=== PATIENT | male | born 1970 | race Caucasian/White ===

== ENCOUNTER 2020-06-10 08:02 | Emergency (ER) | payer SELFPAY ==
[2020-06-10] VITALS (14 sets, daily range): BP systolic 108–150; BP diastolic 62–87; PULSE 99–125; RESP 18–24; TEMP 36.8–37.2; O2SAT 93–100; BMI 35.5
--- NOTE | 2020-06-10 08:35 | ECG_ITS ---
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 Measurements Intervals [place] Rate: 120 P: 72 WA: 116 QRS: 85 QRSD: 96 T: 78 QT: 301 QTc: 426 Interpretive Statements SINUS TACHYCARDIA WITH SHORT WA INTERVAL WITH OCCASIONAL VENTRICULAR PREMATURE COMPLEXES ABNORMAL RHYTHM ECG No previous ECG available for comparison Electronically Signed On 06-10-2020 17:51:43 LOAN ANALYST by Ariel Foley M.D. [email or web address] ([id number]
--- NOTE | 2020-06-10 08:58 | ED_ITS ---
HPI - Abdominal Pain General: Chief Complaint: Abdominal Pain Stated Complaint: BLADDER INFECT, POSS LEUKEMIA WANTS 2ND OPINION Time Seen by Provider: 06/10/20 08:25 History of Present Illness: HPI narrative: 49-year-old male presents emergency room with complaint of right flank plain burning with urination x2 days. Few weeks ago he was seen at [facility] in [facility] and diagnosed with leukemia is supposed to be getting a bone marrow done to further evaluate and confirm he has held off on that he presents here asking for a second opinion on the matter. He denies any fever sweats or chills he has had some nausea. Initially noticed anything and patient is actually rather tachycardic. MD elicited complaint: abdominal pain and flank pain Onset (ago): day(s) Pain Consistency: constant Location: R flank Quality: cramping Radiation: none Migration to: no migration Exacerbating factors: nothing Relieving factors: nothing Associated Symptoms: Reports anorexia, GI cramping, dysuria and fever(s); Denies belching, bloating, change in bowel habits, change in stool character, chills, coffee ground emesis, constipation, diarrhea, dyspepsia, excessive flatus, heartburn, hematemesis, fecal incontinence, poor appetite and syncope Review of Systems Const: Reports: fever(s); Denies: chills ENMT: Denies: throat pain, ear or mastoid pain, nasal discharge or nasal congestion Card: Denies: syncope Resp: Denies: dyspnea, productive cough or non-productive cough GI: Reports: GI cramping; Denies: hematemesis, coffee ground emesis, heartburn, diarrhea, constipation, bloating, belching, excessive flatus, fecal incontinence, change in bowel habits or change in stool character : Reports: dysuria Skin/Breast: Denies: rash or pruritus Physical Exam Const: COMMON NORMALS: no acute distress GENERAL APPEARANCE: cooperative and comfortable ORIENTATION/CONSCIOUSNESS: Yes awake, Yes oriented to person, Yes oriented to place and Yes oriented to time HENMT: COMMON NORMALS: normocephalic, atraumatic and hearing grossly normal bilaterally HEAD & SCALP: normocephalic and atraumatic Eye: COMMON NORMALS: Equal, round and reactive pupils present, EOMs intact bilaterally, conjunctivae normal and no scleral icterus CONJUNCTIVA: Yes conjunctivae normal PUPIL: Yes Equal, round and reactive pupils present Neck/C-Spine: COMMON NORMALS: full ROM, no lymphadenopathy, supple and no JVD Lymph: LYMPHATIC: no lymphadenopathy noted and no lymphedema noted Resp: COMMON NORMALS: normal respiratory effort, No retractions, No use of accessory muscles and clear to auscultation bilaterally AUSCULTATION: clear to auscultation bilaterally Cardio: COMMON NORMALS: no JVD, regular rate, regular rhythm and No murmurs p resent (Cardio) RATE: regular rate RHYTHM: regular rhythm GI: COMMON NORMALS: Soft to palpation and No hepatosplenomegaly present AUSCULTATION: Yes normoactive bowel sounds PALPATION: Yes Soft to palpation, No Tenderness to palpation present (GI), No Guarding due to palpation present (GI) and Yes No hepatosplenomegaly present Extremity: COMMON NORMALS: normal to inspection, capillary refill normal, no clubbing, cyanosis or edema, no calf tenderness and no pedal edema Neuro: SENSORIUM/ORIENTATION: Yes oriented to person, Yes oriented to place and Yes oriented to time Skin: COMMON NORMALS: no rashes or lesions noted GENERAL SKIN EXAM: no rashes or lesions noted Course Vital Signs: Vital signs: Vital Signs Temperature 98.8 F 06/10/20 13:20 Pulse Rate 102 H 06/10/20 13:30 Respiratory Rate 20 H 06/10/20 13:30 Blood Pressure 120/62 06/10/20 13:30 Pulse Oximetry 93 06/10/20 13:30 MDM - Abdominal Pain MDM Narrative: Medical decision making narrative: No urinary tract infection. Hemoglobin significantly low. Get records from [facility] he basically the same presentation there albeit with significantly lower platelet count is anemia today is a little bit worse he was transfused 1 unit there they had recommended that he have a bone marrow done to evaluate because the number of blasts he had in the bone marrow would concur with that recommendation and offered admission to get this done he does not want to because of financial reasons encouraged him to reconsider instead he insists on leaving and will schedule as an outpatient once his blood is transfused will discharge home and will make arrangements early next week for a bone marrow aspiration. Lab Data: Labs: Lab Results 06/10/20 06/10/20 06/10/20 Range/Units 08:55 08:55 08:55 WBC 5.5 (4.0-10.0) 10^3/ uL RBC 1.99 L (4.1-5.3) 10^6/u L Hgb 6.5 L* (11.7-16.6) g/dL Hct 19.4 L* (42.0-52.0) % MCV 97.5 H (80-94) fL MCH 32.7 (28.0-34.0) pg MCHC 33.5 (30.0-36.0) g/dL RDW 17.5 H (12.1-15.1) % Plt Count 121 L (130-400) 10^3/c mm MPV 12.4 H (7.4-10.4) fL Lymph % (Auto) Not Reportable [place] % (Auto) Not Reportable Lymph # (Auto) Not Reportable [place] # (Auto) Not Reportable Total Counted 100 (0-100) Atypical Lymphs % 1.0 (0-5) % Absolute Neutrophi ls 1.7 (1.4-6.5) 10^3/c mm Segmented Neutroph ils 24 % Abs Segm Neuts (Ma n) 1.3 L (1.6-7.1) 10/cmm Band Neutrophils 6.0 % Abs Band Neuts (Ma n) 0.3 (0.0-1.2) 10^3/c mm Lymphocytes (Manua l) 49 % Monocytes (Manual) 4.0 % Absolute Monocytes 0.2 (0.1-0.6) 10^3/c mm Eosinophils (Manua l) 3 % Absolute Eosinophi ls 0.1 (0.0-0.7) 10^3/c mm Basophils (Manual) 1.0 % Absolute Basophils 0.1 (0.0-0.2) 10^3/c mm Metamyelocytes 2.0 % Myelocytes 2.0 % Promyelocytes 1.0 % Nucleated RBCs 1.0 (0-1) /100WBC Blast Cells 7 H* (0-0) % Platelet Estimate Decreased (Normal) Giant Platelets 2+ H Hypochromasia Trace Poikilocytosis Trace Anisocytosis 2+ H Ovalocytes Trace PT (12.1-14.9) SECO NDS INR (0.8-1.2) APTT (23.9-36.7) SECO NDS Sodium (136-145) mmol/L Potassium (3.5-5.1) mmol/L Chloride (98-107) mmol/L Carbon Dioxide (22-29) mmol/L Anion Gap (5-19) BUN (6-20) mg/dL Creatinine (0.7-1.2) mg/dL GFR Calculation (90-130) mL/min Glucose (65-115) mg/dL Calculated Osmolal ity (285-295) mOsm/k g Lactic Acid 2.2 (0.5-2.2) mmol/L Lactic Acid (Sepsi s) (0.5-2.2) mmol/L Calcium (8.5-10.5) mg/dL Total Bilirubin (0.15-1.2) mg/dL AST (0-40) U/L ALT (0-41) U/L Alkaline Phosphata se (40-130) IU/L Troponin T Baselin e 15 (0-15) ng/L Troponin T 120 Min nilda (0-15) ng/L Delta Troponin T (0-10) ABS# Total Protein (6.6-8.7) g/dL Albumin (3.5-5.2) g/dL Globulin (1.3-4.6) g/dL Urine Color (Yellow) Urine Appearance (CLEAR) Urine pH (5-7) Ur Specific Gravit y (1.005-1.030) Urine Protein (Negative) Urine Glucose (UA) (Normal) Urine Ketones (Negative) Urine Blood (Negative) Urine Nitrate (Negative) Urine Bilirubin (Negative) Urine Urobilinogen (Negative) mg/dL Ur Leukocyte Miesha ase (Negative) Blood Type Rho(D) Type Antibody Screen Crossmatch 06/10/20 06/10/20 06/10/20 Range/Units 08:55 08:55 09:51 WBC (4.0-10.0) 10^3/ uL RBC (4.1-5.3) 10^6/u L Hgb (11.7-16.6) g/dL Hct (42.0-52.0) % MCV (80-94) fL MCH (28.0-34.0) pg MCHC (30.0-36.0) g/dL RDW (12.1-15.1) % Plt Count (130-400) 10^3/c mm MPV (7.4-10.4) fL Lymph % (Auto) [place] % (Auto) Lymph # (Auto) [place] # (Auto) Total Counted (0-100) Atypical Lymphs % (0-5) % Absolute Neutrophi ls (1.4-6.5) 10^3/c mm Segmented Neutroph ils % Abs Segm Neuts (Ma n) (1.6-7.1) 10/cmm Band Neutrophils % Abs Band Neuts (Ma n) (0.0-1.2) 10^3/c mm Lymphocytes (Manua l) % Monocytes (Manual) % Absolute Monocytes (0.1-0.6) 10^3/c mm Eosinophils (Manua l) % Absolute Eosinophi ls (0.0-0.7) 10^3/c mm Basophils (Manual) % Absolute Basophils (0.0-0.2) 10^3/c mm Metamyelocytes % Myelocytes % Promyelocytes % Nucleated RBCs (0-1) /100WBC Blast Cells (0-0) % Platelet Estimate (Normal) Giant Platelets Hypochromasia Poikilocytosis Anisocytosis Ovalocytes PT 17.00 H (12.1-14.9) SECO NDS INR 1.33 H (0.8-1.2) APTT 30.8 (23.9-36.7) SECO NDS Sodium 133 L (136-145) mmol/L Potassium 3.7 (3.5-5.1) mmol/L Chloride 95 L (98-107) mmol/L Carbon Dioxide 28 (22-29) mmol/L Anion Gap 13.7 (5-19) BUN 15 (6-20) mg/dL Creatinine 1.1 (0.7-1.2) mg/dL GFR Calculation 71.8 L (90-130) mL/min Glucose 127 H (65-115) mg/dL Calculated Osmolal ity 278 L (285-295) mOsm/k g Lactic Acid (0.5-2.2) mmol/L Lactic Acid (Sepsi s) (0.5-2.2) mmol/L Calcium 9.1 (8.5-10.5) mg/dL Total Bilirubin 0.4 (0.15-1.2) mg/dL AST 10 (0-40) U/L ALT 10 (0-41) U/L Alkaline Phosphata se 59 (40-130) IU/L Troponin T Baselin e (0-15) ng/L Troponin T 120 Min nilda (0-15) ng/L Delta Troponin T (0-10) ABS# Total Protein 7.7 (6.6-8.7) g/dL Albumin 4.1 (3.5-5.2) g/dL Globulin 3.6 (1.3-4.6) g/dL Urine Color (Yellow) Urine Appearance (CLEAR) Urine pH (5-7) Ur Specific Gravit y (1.005-1.030) Urine Protein (Negative) Urine Glucose (UA) (Normal) Urine Ketones (Negative) Urine Blood (Negative) Urine Nitrate (Negative) Urine Bilirubin (Negative) Urine Urobilinogen (Negative) mg/dL Ur Leukocyte Miesha ase (Negative) Blood Type A Positive Rho(D) Type Positive Antibody Screen Negative Crossmatch See Detail 06/10/20 06/10/20 06/10/20 Range/Units 10:21 11:00 11:00 WBC (4.0-10.0) 10^3/ uL RBC (4.1-5.3) 10^6/u L Hgb (11.7-16.6) g/dL Hct (42.0-52.0) % MCV (80-94) fL MCH (28.0-34.0) pg MCHC (30.0-36.0) g/dL RDW (12.1-15.1) % Plt Count (130-400) 10^3/c mm MPV (7.4-10.4) fL Lymph % (Auto) [place] % (Auto) Lymph # (Auto) [place] # (Auto) Total Counted (0-100) Atypical Lymphs % (0-5) % Absolute Neutrophi ls (1.4-6.5) 10^3/c mm Segmented Neutroph ils % Abs Segm Neuts (Ma n) (1.6-7.1) 10/cmm Band Neutrophils % Abs Band Neuts (Ma n) (0.0-1.2) 10^3/c mm Lymphocytes (Manua l) % Monocytes (Manual) % Absolute Monocytes (0.1-0.6) 10^3/c mm Eosinophils (Manua l) % Absolute Eosinophi ls (0.0-0.7) 10^3/c mm Basophils (Manual) % Absolute Basophils (0.0-0.2) 10^3/c mm Metamyelocytes % Myelocytes % Promyelocytes % Nucleated RBCs (0-1) /100WBC Blast Cells (0-0) % Platelet Estimate (Normal) Giant Platelets Hypochromasia Poikilocytosis Anisocytosis Ovalocytes PT (12.1-14.9) SECO NDS INR (0.8-1.2) APTT (23.9-36.7) SECO NDS Sodium (136-145) mmol/L Potassium (3.5-5.1) mmol/L Chloride (98-107) mmol/L Carbon Dioxide (22-29) mmol/L Anion Gap (5-19) BUN (6-20) mg/dL Creatinine (0.7-1.2) mg/dL GFR Calculation (90-130) mL/min Glucose (65-115) mg/dL Calculated Osmolal ity (285-295) mOsm/k g Lactic Acid (0.5-2.2) mmol/L Lactic Acid (Sepsi s) 0.9 (0.5-2.2) mmol/L Calcium (8.5-10.5) mg/dL Total Bilirubin (0.15-1.2) mg/dL AST (0-40) U/L ALT (0-41) U/L Alkaline Phosphata se (40-130) IU/L Troponin T Baselin e (0-15) ng/L Troponin T 120 Min nilda 13.17 (0-15) ng/L Delta Troponin T -1.83 L (0-10) ABS# Total Protein (6.6-8.7) g/dL Albumin (3.5-5.2) g/dL Globulin (1.3-4.6) g/dL Urine Color Yellow (Yellow) Urine Appearance Clear (CLEAR) Urine pH 5 (5-7) Ur Specific Gravit y 1.025 (1.005-1.030) Urine Protein Neg (Negative) Urine Glucose (UA) Norm (Normal) Urine Ketones Negative (Negative) Urine Blood Neg (Negative) Urine Nitrate Negative (Negative) Urine Bilirubin Neg (Negative) Urine Urobilinogen 1 H (Negative) mg/dL Ur Leukocyte Miesha ase Negative (Negative) Blood Type Rho(D) Type Antibody Screen Crossmatch Discharge Plan Discharge Patient Disposition: Home Clinical Impression: Anemia, Thrombocytopenia Condition: Stable Discharge Orders: Discharge ED (Routine); Ordered 06/10/20 Ordered By: Jesse Orlando Discharge Diet: Usual diet Activity Restrictions/Additional Instructions: This management will try to get you scheduled for a bone marrow test as soon as we are able Coding Level of Care Code ED Felt Coverer for eTrri Fwd Exam Comprehensive
[2020-06-10] MEDS: ondansetron 2 mg/ML SDV 2 mL 4 MG IVP ×2 (09:14→10:55)
[2020-06-10] MEDS: sodium chloride 0.9% 1,000 ML 999 ML IV (09:14)
[2020-06-10 09:15] LABS: Mean Corpuscular HGB Conc 33.5 g/dL (30.0-36.0); Mean Corpuscular Hemoglobin 32.7 pg (28.0-34.0); Mean Corpuscular Volume 97.5 fL (80-94); Mean Platelet Volume 12.4 fL (7.4-10.4); Platelet Count 121 10^3/cmm (130-400); Red Blood Count 1.99 10^6/uL (4.1-5.3); Red Cell Distribution Width 17.5 % (12.1-15.1); White Blood Count 5.5 10^3/uL (4.0-10.0)
[2020-06-10 09:23] LABS: Lactic Sepsis W/Reflex 2.2 mmol/L (0.5-2.2)
[2020-06-10 09:25] LABS: Troponin(5th) Baseline 15 ng/L (0-15)
[2020-06-10 09:32] LABS: Alanine Aminotransferase 10 U/L (0-41); Albumin Level 4.1 g/dL (3.5-5.2); Alkaline Phosphatase 59 IU/L (40-130); Anion Gap 13.7 (5-19); Aspartate Amino Transferase 10 U/L (0-40); Blood Urea Nitrogen 15 mg/dL (6-20); Calcium 9.1 mg/dL (8.5-10.5); Carbon Dioxide 28 mmol/L (22-29); Chloride 95 mmol/L (98-107); Globulin 3.6 g/dL (1.3-4.6); Glomerular Filtration Rate 71.8 mL/min (90-130); Glucose 127 mg/dL (65-115); Osmolality Calculated 278 mOsm/kg (285-295); Potassium 3.7 mmol/L (3.5-5.1); Sodium 133 mmol/L (136-145); Total Bilirubin 0.4 mg/dL (0.15-1.2); Total Protein 7.7 g/dL (6.6-8.7)
[2020-06-10 09:36] LABS: Slide Review Slide Review Perform
[2020-06-10 09:39] LABS: Hematocrit 19.4 % (42.0-52.0); Hemoglobin 6.5 g/dL (11.7-16.6)
[2020-06-10 09:45] LABS: Absolute Eosinophils 0.1 10^3/cmm (0.0-0.7); Absolute Segmented Neutrophil 1.3 10/cmm (1.6-7.1); Band Neutrophils Absolute 0.3 10^3/cmm (0.0-1.2); Basophils Absolute 0.1 10^3/cmm (0.0-0.2); Eosinophils 3 %; Lymphocytes 49 %; Monocytes Absolute 0.2 10^3/cmm (0.1-0.6); Segmented Neutrophils 24 %; Total Cells Counted 100 (0-100)
[2020-06-10 09:47] LABS: Blastocytes 7 % (0-0)
[2020-06-10 09:48] LABS: Anisocytosis 2+; Giant Platelets 2+; Hypochromasia Trace; Ovalocytes Trace; Poikilocytosis Trace
[2020-06-10 09:49] LABS: Absolute Neutrophil 1.7 10^3/cmm (1.4-6.5); Platelet Estimate Decreased (Normal)
[2020-06-10 10:29] LABS: Add Urine Microscopic? NO
[2020-06-10 10:34] LABS: Bilirubin Urine Neg (Negative); Blood Urine Neg (Negative); Glucose Urine UA Norm (Normal); Ketones Urine Negative (Negative); Leukocyte Esterase Urine Negative (Negative); Nitrate Urine Negative (Negative); Protein Urine Neg (Negative); Specific Gravity, Urine 1.025 (1.005-1.030); Urine Appearance Clear (CLEAR); Urine Color Yellow (Yellow); Urobilinogen Urine 1 mg/dL (Negative); pH Urine 5 (5-7)
--- NOTE | 2020-06-10 10:35 | ECG_ITS ---
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 Measurements Intervals [place] Rate: 106 P: 70 PA: 156 QRS: 81 QRSD: 93 T: 73 QT: 325 QTc: 431 Interpretive Statements SINUS TACHYCARDIA Compared to ECG 06/10/2020 09:06:05 Ventricular premature complex(es) no longer present Short PA interval no longer present Electronically Signed On 06-10-2020 17:59:59 FAMILY PRACTICE DOCTOR by Ariel Foley M.D. [id number]
[2020-06-10 10:48] LABS: Reflex Lactate Order REFLEX LACTIC ORDERD
[2020-06-10] MEDS: morphine 4 mg/mL SDV 1 mL IVP ×2 (10:55→12:45)
[2020-06-10 11:25] LABS: Lactic Acid level (Lactate) 0.9 mmol/L (0.5-2.2)
[2020-06-10 11:26] LABS: Troponin 5 2HR 13.17 ng/L (0-15)
[2020-06-10 11:28] LABS: Troponin 5 2HR Delta -1.83 ABS# (0-10)
[2020-06-10] MEDS: sodium chloride 0.9% 250 ML 100 ML IV (12:23)
[2020-06-10] MEDS: orphenadrine 30 mg/mL Inj 2 mL 60 MG IVP (12:45)
[2020-06-10] MEDS: ketorolac 30 mg/mL INJ IVP (12:45)
[2020-06-10 13:06] LABS: INR 1.33 (0.8-1.2)
[2020-06-10 13:07] LABS: Partial Thromboplastin Time 30.8 SECONDS (23.9-36.7)
--- NOTE | 2020-06-12 15:45 | DCPLANNER ---
commercial loan manager had message to schedule an outpatient bone marrow study for patient. commercial loan manager called Lilo Antonio, call center coordinator for [facility]. commercial loan manager gave clinic patients information. commercial loan manager was told that patients information will be printed and that she will call family to inform patient of what patient needs to do to get things started. commercial loan manager gave Antonio, patients name and phone number.
--- NOTE | 2020-06-27 08:01 | DCPLANNER ---
Patient had a follow up appointment scheduled for 06.15.20 with the [facility], patient saw Dr. Bowman, patient is going to follow up in [place].
== END 2020-06-10 14:44 | disposition home or self-care (01) ==
PROVIDERS: Emergency Provider Family Medicine
DX: D64.9 Anemia, unspecified (principal); D69.6 Thrombocytopenia, unspecified
CPT/HCPCS: 12345; 36430; 80053; 81003; 83605; 84484; 85007; 85025; 85610; 85730; 86850; 86900; 86920; 87040; 93005; 96361; 96374; 96375; 96376; 99283; 99284; J1885; J2270; J2360; J2405; J7030; J7050; P9016

== ENCOUNTER 2020-06-15 10:34 | Outpatient (CLI) | payer SELFPAY ==
[2020-06-15 11:11] LABS: Basophils % 0.4 %; Eosinophils # 0.2 10^3/uL (0.0-0.8); Eosinophils % 3.6 %; Hematocrit 21.7 % (42.0-52.0); Hemoglobin 7.1 g/dL (11.7-16.6); Lymphocytes # 3.5 10^3/uL (0.8-4.8); Lymphocytes % 73.7 %; Mean Corpuscular HGB Conc 32.7 g/dL (30.0-36.0); Mean Corpuscular Hemoglobin 31.8 pg (28.0-34.0); Mean Corpuscular Volume 97.3 fL (80-94); Monocytes # 0.4 10^3/uL (0.2-0.9); Monocytes % 8.3 %; Neutrophils % 10.8 %; Nucleated Red Blood Cells % 0.4 %; Platelet Count 123 10^3/cmm (130-400); Red Blood Count 2.23 10^6/uL (4.1-5.3); Red Cell Distribution Width 16.2 % (12.1-15.1); White Blood Count 4.7 10^3/uL (4.0-10.0)
[2020-06-15 12:06] LABS: Slide Review Slide Review Perform
--- NOTE | 2020-06-15 16:06 | ONC CON_ITS ---
Dr. Bowman New Patient Note Patient: Sukhdeep Hyde Unit #: [id number]: 1970 Dicatated By: Alyssa Bowman M.D.Date of Visit: Jun 15, 2020 Onc MED New Patient/Consult Referring Physician: No 'Referrals from' exist for this patient. History of Present Illness: Mr. Sukhdeep Hyde, is a 49-year-old gentleman with known significant past medical history except progressive generalized weakness and fatigue and episode of near syncopal attack for which he went to [facility] ER in [facility] on May 23, 2020, as per patient prior to that he was feeling lightheaded and dizzy along with the palpitation and he went to see his PMD where labs showed including CBC showed hemoglobin 6.7 g and platelet count 49,000 patient was advised to go to the emergency room in [facility] where repeat CBC on May 23, 2020 showed hemoglobin 6.5 g platelet count 66,000 and peripheral blood smear shows blasts 6% and his folate level was 2.84, patient was tachycardic so EKG showed tachycardia with possible flutter, chest x-ray shows no acute process and patient was given 1 unit of packed RBC and was admitted to hospital for further work-up and hematology consult was called in and the recommendations were due to severe anemia and thrombocytopenia with about 7-8% blast cells on peripheral blood smear peripheral blood flow cytometry was ordered which was done on May 24, 2020 showed increased myeloid lineage blasts, 7.9% with aberrant CD7, mild eosinophilia. Granulocyte population in various stages of maturation with aberrant 56 expression is identified and differential included AML, MDS or a myeloproliferative neoplasm, bone marrow evaluation was recommended but patient got upset with physician there and decided to take second opinion and did not make follow-up appointment with hematology clinic. Patient denies any recent infection patient denies any melena or hematochezia or hemoptysis or hematemesis patient denies any jaundice patient denies any hematuria patient denies any abdominal pain patient denies any peripheral lymphadenopathy patient denies any night sweats, weight loss or recurrent fevers patient denies any abdominal fullness patient denies any weight loss. But progressive weakness, shortness of breath and dyspnea on exertion and palpitation And on June 10, 2020 he went to [facility] with right flank pain and burning micturition of couple of days duration and his labs shows white blood count 5.5, hemoglobin 6.5 hematocrit 19.4 platelets 121,007% promyelocytes ANC was 24% patient was given packed RBC and oral antibiotics and was referred to hematology clinic. Patient denies any specific complaints except appears anxious regarding new diagnosis of acute leukemia, said he was told to stay in the hospital for 14 days in [place] and he may need treatments for 4 months. Past Medical History: There is no documented medical history. Past Surgical History: There is no documented surgical history. Medications: This patient reports not taking external medications. Allergies: No Known Allergies. Social History: Mr. Hyde is . He is a daily smoker who has smoked for 33 years. He drinks occasionally. Family History: There is no documented family history. Review Of Symptoms: Constitutional - Appetite is diminished and weight is decreasing. No fever, night sweats, or hot flashes. Energy level is diminished, ENMT - No sinus congestion/drainage. No mouth sores. No sore throat or difficulty swallowing, Hematologic/Lymphatic - Positive for easy bruising and bleeding. Pt reports hx of b lood transfusions, Respiratory - Positive for shortness of breath and cough. No pleuritic pain or hemoptysis, Cardiovascular - No angina pain. No palpitations, Gastrointestinal - No nausea or vomiting. No heartburn or acid reflux. No diarrhea or constipation. No blood in the stool or black stools, Genitourinary (M) - No dysuria or hematuria. No urinary frequency. No urgency or incontinence, Musculoskeletal - Positive for joint pain, Neurologic - No headache or dizziness. No numbness or tingling. Pt reports hx of stroke, Psychiatric - No anxiety or depression. No insomnia. Vital Signs: Performed on Jun 15, 2020 11:37: 2, 34.39 (HIGH), 2.31 sq.m, 71 in, 96 %, 123 /min (HIGH), 18 /min, 145/85 mm(hg) (HIGH), 97.7 F (LOW), and 246.6 lbs (HIGH). Performance Status: 1 - No physically strenuous activity, but ambulatory and able to carry out light or sedentary work (e.g. office work, light house work). (ECOG) Physical Examination: ENMT - No mouth sores no thrush no jaundice, Respiratory - Lungs are clear to auscultation, Cardiovascular - Regular rate and rhythm of heart, Abdomen - Soft, bowel sounds present, Extremities - No visible edema. Lab/Imaging: Most recent lab results are not available for this patient. Impression: Severe normocytic, normochromic anemia, mild thrombocytopenia and with abnormal peripheral blood smear with myeloblasts/pro myeloblasts, etiology AML versus MDS with excess blast versus other myeloproliferative disorder Status post packed RBCs twice since May 23, 2020 Plan: Discussed with patient regarding his labs from today which showed white blood count 4.7 hemoglobin 7.1 hematocrit 21.7 platelets 123,000 ANC 500 And peripheral blood flow cytometry done on May 24, 2020 at [facility] which showed peripheral blood specimen with increased myeloid lineage blasts, 7.9% aberrant CD7, mild eosinophilia. Granulocyte population very stages of maturation with aberrant CD56 expression is identified Clinically, patient is in mild to moderate distress due to severe anemia as well as anxiety, patient was reassured and was advised that his peripheral blood smear as well as whole blood flow cytometry results shows abnormality causing concern regarding possibility of acute myeloid leukemia but other possibility including MDS with excess blast is also a possibility and strongly recommend bone marrow evaluation to confirm the diagnosis for appropriate treatment, patient lives in [facility] and had a follow-up appointment in hematology clinic at [facility], patient was advised to contact hematology clinic and follow the recommendations regarding further diagnostic work-up and treatment on an urgent basis. Patient and his expressed full understanding and agreed to go for bone marrow evaluation and require treatment., Patient and his said they will call and schedule appointment with travertine installer at [facility]. And they were advised if in case they need any assistance, will be more than happy to assist.Patient was also advised in case he started feeling dizzy or lightheaded or any fever chills, he need to go to hospital immediately for evaluation. Signed By: Alyssa Bowman M.D. <<Signature on File>>
== END 2020-06-15 10:35 | disposition home or self-care (01) ==
LOC: ONCMED 10:41
PROVIDERS: Visit Provider Internal Medicine Hematology & Oncology
DX: D64.9 Anemia, unspecified (principal); D69.6 Thrombocytopenia, unspecified; F41.9 Anxiety disorder, unspecified
CPT/HCPCS: 36415; 85025; 99205

== ENCOUNTER 2020-10-08 11:22 | Emergency (ER) | payer MEDICAID, SELFPAY ==
[2020-10-08 11:38] VITALS: BP 162/105; PULSE 118; RESP 16; TEMP 36.8; O2SAT 97; BMI 30.7
--- NOTE | 2020-10-08 12:07 | ED_ITS ---
HPI - Dizziness General: Chief Complaint: Dizziness Stated Complaint: DIZZINESS Time Seen by Provider: 10/08/20 12:04 History of Present Illness: HPI Narrative: 50-year-old patient comes in stating he feels dizzy. He got up to use the bathroom at 3-4 AM and felt wobbly. 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 He states that when he feels like this he is usually anemic. He denies any pain or burning with urination. No diarrhea or constipation. No fever or chills. No shortness of breath or cough. He denies any ear pain, runny nose or sore throat. He denies any abdominal pain. No flank pain. MD elicited complaint: dizziness (She states he feels wobbly.) Pertinent past history: anemia (History of anemia) and other (AML) Onset (ago): hour(s) (This started 3-4 AM.) Timing: sudden onset Severity: similar to previous episodes (He states he has felt this way when he has been anemic.) Description: off-balance History of similar symptoms: Yes Exacerbating factors: movement/ambulation and change in body position Relieving factors: remaining still and rest Associated symptoms: Denies chest pain, chills, cough, diaphoresis, ear discharg e, ear pressure, fevers/chills, headache(s), nausea, palpitations, short of breath, vomiting or weakness Review of Systems General: Reports: 10 or more systems reviewed and unremarkable except in HPI and below Narrative: 50-year-old male with AML and history of anemia comes in feeling dizzy. Patient appears to be in no acute distress. Const: Denies: fever(s), chills, body aches, fatigue or diaphoresis Eyes: Denies: blurry vision ENMT: Denies: throat pain, ear or mastoid pain, ear discharge or nasal discharge Card: Reports: lightheadedness (Current chief complaint of dizziness); Denies: chest pain, palpitations or irregular heart rhythm Resp: Denies: dyspnea or productive cough GI: Denies: nausea or vomiting Neuro: Denies: headache(s) Physical Exam Narrative: EXAM NARRATIVE: 50-year-old male in no acute distress. Comes in with dizziness. He states this is how he feels when his blood level is low. 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 Const: COMMON NORMALS: no acute distress, average body habitus, patient oriented x3, no limitations, healthy appearing, alert and well nourished GENERAL APPEARANCE: cooperative, comfortable, well kempt and well developed ORIENTATION/CONSCIOUSNESS: Yes awake, Yes oriented to person, Yes oriented to place and Yes oriented to time HENMT: COMMON NORMALS: normocephalic and atraumatic HEAD & SCALP: normocephalic and atraumatic Eye: COMMON NORMALS: Equal, round and reactive pupils present, EOMs intact bilaterally, conjunctivae normal, no scleral icterus and no papilledema GENERAL EYE: appearance normal, both eyes and all related structures CONJUNCTIVA: Yes conjunctivae normal PUPIL: Yes Equal, round and reactive pupils present DIRECT OPHTHALMOSCOPY: Yes no papilledema Neck/C-Spine: COMMON NORMALS: full ROM, supple, no meningeal signs and no JVD GENERAL: Yes normal visual inspection and Yes trachea midline Resp: COMMON NORMALS: normal respiratory effort, No retractions, No use of accessory muscles and clear to auscultation bilaterally EFFORT & INSPECTION: Yes able to speak in complete sentences, Yes symmetric chest movement and No respiratory distress AUSCULTATION: clear to auscultation bilaterally, no crackles, no rales, no rhonchi and no wheezes Cardio: COMMON NORMALS: no JVD, regular rate, regular rhythm and No murmurs present (Cardio) RATE: regular rate RHYTHM: regular rhythm GI: COMMON NORMALS: Soft to palpation and non-tender PALPATION: Yes Soft to palpation : COMMON NORMALS: Yes no CVA tenderness BLADDER/KIDNEY EXAM: Yes no CVA tenderness Back/Pelvis: COMMON NORMALS: no CVA tenderness Extremity: COMMON NORMALS: normal to inspection, full ROM and no calf tenderness Neuro: COMMON NORMALS: patient oriented x3, CN's II-XII intact bilaterally, moves all extremities, no focal motor deficits, deep tendon reflexes 2+ bilaterally and gait normal SENSORIUM/ORIENTATION: Yes alert, Yes oriented to person, Yes oriented to place and Yes oriented to time MENINGEAL SIGNS: Yes no meningeal signs Psych: COMMON NORMALS: mental status grossly normal, Normal thought process present, cooperative, normal affect and speech normal APPEARANCE: Yes grossly normal and Yes well kempt ATTITUDE: Yes calm and Yes engaged ACTI VITY/MOTOR BEHAVIOR: Yes appropriate eye contact SPEECH: Yes normal speech THOUGHT PROCESS: Normal thought process present Course Vital Signs: Vital signs: Vital Signs Temperature 98.3 F 10/08/20 11:38 Pulse Rate 108 H 10/08/20 12:31 Respiratory Rate 16 10/08/20 11:38 Blood Pressure 163/101 10/08/20 12:31 Pulse Oximetry 97 10/08/20 11:38 MDM - Dizziness Lab Data: Labs: Lab Results 10/08/20 10/08/20 Range/Units 12:47 12:47 WBC 8.3 (4.0-10.0) 10^3/ uL RBC 4.07 L (4.1-5.3) 10^6/u L Hgb 13.7 (11.7-16.6) g/dL Hct 41.5 L (42.0-52.0) % MCV 102.0 H (80-94) fL MCH 33.7 (28.0-34.0) pg MCHC 33.0 (30.0-36.0) g/dL RDW 17.5 H (12.1-15.1) % Plt Count 235 (130-400) 10^3/c mm MPV 10.1 (7.4-10.4) fL Neut % (Auto) 53.3 % Lymph % (Auto) 27.0 % Cochran % (Auto) 13.0 % Eos % (Auto) 6.0 % Baso % (Auto) 0.5 % Neut # (Auto) 4.43 (1.8-7.7) 10^3/u L Lymph # (Auto) 2.3 (0.8-4.8) 10^3/u L Cochran # (Auto) 1.1 H (0.2-0.9) 10^3/u L Eos # (Auto) 0.5 (0.0-0.8) 10^3/u L Baso # (Auto) 0.0 (0.0-0.1) 10^3/u L Nucleated RBC % (a uto) 0 % Nucleated RBCs # 0.0 /100WBC Sodium 139 (136-145) mmol/L Potassium 4.5 (3.5-5.1) mmol/L Chloride 104 (98-107) mmol/L Carbon Dioxide 25 (22-29) mmol/L Anion Gap 14.5 (5-19) BUN 11 (6-20) mg/dL Creatinine 0.8 (0.7-1.2) mg/dL GFR Calculation 103.2 (90-130) mL/min Glucose 97 (65-115) mg/dL Calculated Osmolal ity 287 (285-295) mOsm/k g Calcium 9.4 (8.5-10.5) mg/dL Total Bilirubin 0.2 (0.15-1.2) mg/dL AST 26 (0-40) U/L ALT 20 (0-41) U/L Alkaline Phosphata se 85 (40-130) IU/L Total Protein 7.1 (6.6-8.7) g/dL Albumin 4.1 (3.5-5.2) g/dL Globulin 3.0 (1.3-4.6) g/dL Discharge Plan Discharge Patient Disposition: Home Clinical Impression: Dizziness, Orthostatic hypotension, History of anemia Condition: Stable Discharge Orders: Discharge ED (Routine); Ordered 10/08/20 Ordered By: Luis Pascal Discharge Diet: Advance as tolerated Discharge Activity: Resume usual activity Patient Instructions: Opioid Safety Activity Restrictions/Additional Instructions: Increase noncaffeine/nonalcoholic fluids. Please wear teds/support hose. Follow-up with your primary care physician and/or oncologist. Coding Level of Care Code ED Chain Pegger for Derikg Fwd Exam Comprehensive
[2020-10-08 12:31] VITALS: BP 133/105; BP 163/101; BP 164/106; PULSE 108; PULSE 111
[2020-10-08 12:58] LABS: Basophils % 0.5 %; Eosinophils # 0.5 10^3/uL (0.0-0.8); Hematocrit 41.5 % (42.0-52.0); Hemoglobin 13.7 g/dL (11.7-16.6); Lymphocytes # 2.3 10^3/uL (0.8-4.8); Mean Corpuscular Hemoglobin 33.7 pg (28.0-34.0); Mean Platelet Volume 10.1 fL (7.4-10.4); Monocytes # 1.1 10^3/uL (0.2-0.9); Neutrophils # 4.43 10^3/uL (1.8-7.7); Neutrophils % 53.3 %; Nucleated Red Blood Cells % 0 %; Platelet Count 235 10^3/cmm (130-400); Red Blood Count 4.07 10^6/uL (4.1-5.3); Red Cell Distribution Width 17.5 % (12.1-15.1); White Blood Count 8.3 10^3/uL (4.0-10.0)
[2020-10-08] MEDS: sodium chloride 0.9% 1,000 ML 999 ML IV (13:15)
[2020-10-08 13:30] LABS: Albumin Level 4.1 g/dL (3.5-5.2); Alkaline Phosphatase 85 IU/L (40-130); Anion Gap 14.5 (5-19); Blood Urea Nitrogen 11 mg/dL (6-20); Calcium 9.4 mg/dL (8.5-10.5); Carbon Dioxide 25 mmol/L (22-29); Chloride 104 mmol/L (98-107); Glomerular Filtration Rate 103.2 mL/min (90-130); Glucose 97 mg/dL (65-115); Osmolality Calculated 287 mOsm/kg (285-295); Potassium 4.5 mmol/L (3.5-5.1); Sodium 139 mmol/L (136-145); Total Bilirubin 0.2 mg/dL (0.15-1.2); Total Protein 7.1 g/dL (6.6-8.7)
[2020-10-08 13:31] LABS: Alanine Aminotransferase 20 U/L (0-41); Aspartate Amino Transferase 26 U/L (0-40)
[2020-10-08 14:52] VITALS: BP 152/98; PULSE 95; RESP 16; O2SAT 96
== END 2020-10-08 14:54 | disposition home or self-care (01) ==
PROVIDERS: Emergency Provider Emergency Medicine
DX: R42 Dizziness and giddiness (principal); I95.1 Orthostatic hypotension; Z85.6 Personal history of leukemia
CPT/HCPCS: 80053; 85025; 96360; 99283; J7030

== ENCOUNTER 2021-01-06 04:50 | Observation (INO) | payer MEDICAID, SELFPAY ==
[2021-01-06] VITALS (20 sets, daily range): BP systolic 94–125; BP diastolic 50–80; PULSE 85–138; RESP 16–29; TEMP 36.6–37.1; O2SAT 93–100; BMI 30.7
--- NOTE | 2021-01-06 05:11 | XRR_ITS ---
PROCEDURE INFORMATION: Exam: XR Chest Exam date and time: 01/06/2021 5:11 AM Age: 50 years old Clinical indication: Shortness of breath; Patient HX: SOB. History of myeloid lukemia. TECHNIQUE: Imaging protocol: XR of the chest. Views: 1 view. Total images: 1 COMPARISON: No relevant prior studies available. FINDINGS: Lungs: Unremarkable. No consolidation. Pleural spaces: Unremarkable. No pleural effusion. No pneumothorax. Heart/Mediastinum: Unremarkable. No cardiomegaly. Bones/joints: Unremarkable. XR/XR chest 1V portable [id number] IMPRESSION: No acute findings.
--- NOTE | 2021-01-06 05:13 | ECG_ITS ---
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
[2021-01-06] MEDS: sodium chloride 0.9% 1,000 ML 999 ML IV (05:32)
--- NOTE | 2021-01-06 05:36 | PC.NURSE ---
patient refused covid swab
[2021-01-06 06:08] LABS: Hematocrit 25.6 % (42.0-52.0); Hemoglobin 8.9 g/dL (11.7-16.6); Lymphocytes % 58.8 %; Mean Corpuscular HGB Conc 34.8 g/dL (30.0-36.0); Mean Corpuscular Volume 92.1 fL (80-94); Monocytes # 0.2 10^3/uL (0.2-0.9); Monocytes % 12.1 %; Neutrophils % 27.9 %; Nucleated Red Blood Cells % 0 %; Red Blood Count 2.78 10^6/uL (4.1-5.3); Red Cell Distribution Width 11.7 % (12.1-15.1); White Blood Count 1.7 10^3/uL (4.0-10.0)
[2021-01-06 06:32] LABS: Lactate (Lactic Acid level) 0.9 mmol/L (0.5-2.2)
[2021-01-06 06:34] LABS: Troponin(5th) Baseline 18 ng/L (0-15)
[2021-01-06 06:35] LABS: Alanine Aminotransferase 9 U/L (0-41); Albumin Level 3.6 g/dL (3.5-5.2); Alkaline Phosphatase 67 IU/L (40-130); Anion Gap 14.5 (5-19); Aspartate Amino Transferase 12 U/L (0-40); Blood Urea Nitrogen 20 mg/dL (6-20); C Reactive Protein 96.7 mg/L (0.0-4.9); Calcium 8.2 mg/dL (8.5-10.5); Carbon Dioxide 25 mmol/L (22-29); Chloride 95 mmol/L (98-107); Creatine Phosphokinase 57 U/L (39-308); Globulin 2.2 g/dL (1.3-4.6); Glomerular Filtration Rate 64.6 mL/min (90-130); Glucose 113 mg/dL (65-115); Osmolality Calculated 273 mOsm/kg (285-295); Potassium 4.5 mmol/L (3.5-5.1); Sodium 130 mmol/L (136-145); Total Bilirubin 0.7 mg/dL (0.15-1.2); Total Protein 5.8 g/dL (6.6-8.7)
[2021-01-06 06:36] LABS: D Dimer 6.43 ug/mIFEU (0-0.59)
[2021-01-06] MEDS: morphine 4 mg/mL SDV 1 mL IVP ×2 (06:39→10:04)
[2021-01-06] MEDS: ondansetron 2 mg/ML SDV 2 mL 4 MG IVP (06:40)
[2021-01-06 06:41] LABS: Procalcitonin 0.86 ng/mL (0-0.5)
--- NOTE | 2021-01-06 06:49 | CTR_ITS ---
PROCEDURE INFORMATION: Exam: CTA Chest With Contrast Exam date and time: 01/06/2021 6:49 AM Age: 50 years old Clinical indication: Abdominal tenderness; Abdominal pain; Generalized; Dyspnea; On breathing; Additional info: Chest and abdominal pain, hypoxia, SOB TECHNIQUE: Imaging protocol: Computed tomographic angiography of the chest with contrast. 3D rendering (Not supervised by radiologist): MIP and/or 3D reconstructed images were created by the technologist. Total images: 1163 Radiation optimization: All CT scans at this facility use at least one of these dose optimization techniques: automated exposure control; mA and/or kV adjustment per patient size (includes targeted exams where dose is matched to clinical indication); or iterative reconstruction. Contrast material: OMNIPAQUE 350; Contrast volume: 95 ml; Contrast route: INTRAVENOUS (IV); COMPARISON: CR (CHEST, ) 01/06/2021 5:25 AM RADIATION DOSE METRICS: Total DLP (mGy-cm): 1567.23 FINDINGS: Pulmonary arteries: Pulmonary artery evaluation of good technical quality with no pulmonary artery embolism identified. Aorta: Unremarkable. No aortic aneurysm. No aortic dissection. Lungs: Unremarkable. No consolidation. No masses. Pleural spaces: Unremarkable. No pneumothorax. No pleural effusion. Heart: Unremarkable. No cardiomegaly. No pericardial effusion. Lymph nodes: Unremarkable. No enlarged lymph nodes. Bones/joints: Unremarkable. No acute fracture. Soft tissues: Unremarkable. IMPRESSION: 1. No pulmonary artery embolism identified. 2. No acute process identified. PROCEDURE INFORMATION: Exam: CT Abdomen And Pelvis With Contrast Exam date and time: 01/06/2021 6:49 AM Age: 50 years old Clinical indication: Abdominal tenderness; Abdominal pain; Generalized; Dyspnea; On breathing; Additional info: Chest and abdominal pain, hypoxia, SOB TECHNIQUE: Imaging protocol: Computed tomography of the abdomen and pelvis with contrast. Radiation optimization: All CT scans at this facility use at least one of these dose optimization techniques: automated exposure control; mA and/or kV adjustment per patient size (includes targeted exams where dose is matched to clinical indication); or iterative reconstruction. Contrast material: OMNIPAQUE 350; Contrast volume: 95 ml; Contrast route: INTRAVENOUS (IV); COMPARISON: CR (CHEST, ) 01/06/2021 5:25 AM RADIATION DOSE METRICS: Total DLP (mGy-cm): 1567.23 FINDINGS: Lungs: Benign granulomatous disease of the lung is noted. Liver: Normal. No mass. Gallbladder and bile ducts: Normal. No calcified stones. No ductal dilation. Pancreas: Normal. No ductal dilation. Spleen: Normal. No splenomegaly. Adrenal glands: Normal. No mass. Kidneys and ureters: Normal. No hydronephrosis. Stomach and bowel: Unremarkable. No obstruction. No mucosal thickening. Appendix: No evidence of appendicitis. Intraperitoneal space: Unremarkable. No free air. No significant fluid collection. Vasculature: Unremarkable. No abdominal aortic aneurysm. Lymph nodes: Unremarkable. No enlarged lymph nodes. Urinary bladder: Unremarkable as visualized. Reproductive: Unremarkable as visualized. Bones/joints: Mild scattered degenerative changes of the spine. Soft tissues: Unremarkable. CT/CT angio chest w abd pel w con IMPRESSION: No acute findings. Radiation Dose CTDIVOL = (mGy): DLP = 1567.23~1567.23 (mGy-cm)
[2021-01-06 06:51] LABS: PCO2 VBG 43.6 mmHg (41-51); PO2 VBG 36.6 mmHg (25-40); Venous Blood Gas Hematocrit 7.4 % (42-52)
[2021-01-06 06:52] LABS: Base Excess VBG 1.9 mmol/L (-3.0-3.0); Blood Gas Allen Test pos; HCO3 VBG 26.9 mmol/L (24-28); Oxygen Device nc
--- NOTE | 2021-01-06 06:59 | PC.NURSE ---
patient stated felt better, denied any pain at this time. no acute distress noted
--- NOTE | 2021-01-06 07:13 | ECG_ITS ---
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1970 Requested By: Santos Avitia Order Number: [id number] Donaldo MD: CALLIE LIVINGSTON Measurements Intervals [place] Rate: 90 P: 73 WI: 152 QRS: 90 QRSD: 102 T: 79 QT: 358 QTc: 439 Interpretive Statements SINUS RHYTHM WITH MARKED RHYTHM IRREGULARITY, POSSIBLE NON-CONDUCTED PAC, SA BLOCK, AV BLOCK, OR SINUS PAUSE ABNORMAL RHYTHM ECG Compared to ECG 01/06/2021 05:16:02 Sinus tachycardia no longer present Electronically Signed On 01-06-2021 20:30:47 CDT by CALLIE LIVINGSTON [id number]
[2021-01-06] MEDS: iohexol 350 mg/mL 100 mL Btl IV (07:36)
[2021-01-06 07:39] LABS: Add Urine Microscopic? YES; Bilirubin Urine Neg (Negative); Blood Urine Neg (Negative); Glucose Urine UA Norm (Normal); Ketones Urine Negative (Negative); Leukocyte Esterase Urine Negative (Negative); Nitrate Urine Negative (Negative); Protein Urine Trace (Negative); Specific Gravity, Urine 1.015 (1.005-1.030); Urine Appearance Clear (CLEAR); Urine Color Yellow (Yellow); Urobilinogen Urine Norm (Negative); pH Urine 5 (5-7)
[2021-01-06 07:41] LABS: Add Urine Culture? No; Bacteria Urine TRACE /hpf; Mucus Urine 2+ /hpf
[2021-01-06 08:14] LABS: Neutrophils # 0.46 10^3/uL (1.8-7.7); Platelet Count 7 10^3/cmm (130-400)
[2021-01-06 08:15] LABS: Slide Review Slide Review Perform
[2021-01-06 08:39] LABS: Troponin 5 2HR 17.82 ng/L (0-15)
[2021-01-06 08:40] LABS: Troponin 5 2HR Delta -0.18 ABS# (0-10)
--- NOTE | 2021-01-06 09:00 | ED_ITS ---
Documented by User: Santos Ferrara DO 01/06/21 20:05 HPI - Abdominal Pain General: Chief Complaint: ER Hold Stated Complaint: aml flare up Time Seen by Provider: 01/06/21 05:04 History of Present Illness: HPI narrative: 50-year-old male with a history of AML. He woke with back and abdominal pain. He is sick at his stomach as well. He denies any cough or fever. He states that he has not had chemotherapy in 3 months or more. MD elicited complaint: abdominal pain Pertinent past history: other Onset (ago): hour(s) Pain Consistency: constant Location: Diffuse Severity: severe Quality: cramping, stabbing and aching Radiation: back Migration to: no migration Associated Symptoms: Reports nausea; Denies change in stool character, constipation, diarrhea, fever(s), hematochezia, hematemesis and vomiting Review of Systems Const: Denies: fever(s) or body aches ENMT: Denies: throat pain Card: Denies: chest pain or palpitations GI: Reports: nausea; Denies: vomiting, hematemesis, diarrhea, constipation, change in stool character or hematochezia PFSH ED PFSH: Medical History (Updated 01/07/21 @ 18:01 by Jesse Orlando DO) AML (acute myeloblastic leukemia) (~05/2020) Has received some chemotherapy and had multiple bone marrow biopsies. Not wanting further treatment or hospitalization at this time. History of anemia Orthostatic hypotension Surgical History (Updated 01/06/21 @ 15:32 by Tiffanie Penny MD) History of bone marrow biopsy multiple Family History (Updated 01/06/21 @ 15:33 by Tiffanie Penny MD) Denies family history of Cancer Social History (Updated 01/06/21 @ 15:33 by Tiffanie Penny MD) Smoking and tobacco status: current every day smoker Alcohol intake: never Substance/Drug Use: never Physical Exam Const: GENERAL APPEARANCE: cooperative and ill appearing ORIENTATION/CONSCIOUSNESS: Yes awake, Yes oriented to person, Yes oriented to place and Yes oriented to time HENMT: COMMON NORMALS: normocephalic HEAD & SCALP: normocephalic FACE & SINUS: normal facial exam Chest: COMMONS NORMALS: normal inspection of the chest Resp: EFFORT & INSPECTION: Yes tachypneic AUSCULTATION: wheezes (R>L) Cardio: COMMON NORMALS: regular rhythm RATE: tachycardic RHYTHM: regular rhythm GI: COMMON NORMALS: Normal to inspection, nondistended, normoactive bowel sounds present and Soft to palpation PALPATION: Yes Soft to palpation and Yes Tenderness to palpation present (GI) (mild diffuse) Neuro: SENSORIUM/ORIENTATION: Yes oriented to person, Yes oriented to place and Yes oriented to time Course Consultations: Consultation #1: Dr. Tuttle (for Dr. Cuenca, oncology at ) Vital Signs: Vital signs: Vital Signs Temperature 97.8 F 01/06/21 17:33 Pulse Rate 91 01/06/21 17:33 Respiratory Rate 19 H 01/06/21 17:33 Blood Pressure 112/62 01/06/21 17:33 Pulse Oximetry 96 01/06/21 17:33 MDM - Abdominal Pain MDM Narrative: Medical decision making narrative: Laboratory shows severe thrombocytopenia with a platelet count of 7. White blood cell count is 1.7 he was significantly tachycardic on arrival, in the 130s to 140s. His heart rates currently 85. Blood pressure 98/51 after fluid bolus. CTA of the chest with abdomen pelvis was ordered. Shows no acute findings either in the chest or abdomen/pelvis. He will still require platelet transfusion. He also has mild neutropenia with a neutrophil count of 460. The patient refused his Covid swab. Spoke with oncology at the [facility], where the patient has care. He has evidently refused all oncologic treatments at this point. Recommendations are to transfuse platelets in this patient, and if he is clinically stable otherwise, allow him to go home. Observation orders were written for this patient to come into the hospital, be further evaluated, and receive his platelet transfusion. He received his platelets, 2 units in the emergency department. He still did not have a bed available upstairs. This frustrated the patient, so he asked to be discharged home. Lab Data: Labs: Lab Results 01/06/21 01/06/21 01/06/21 Range/Units 05:32 05:32 05:32 WBC 1.7 L (4.0-10.0) 10^3/ uL RBC 2.78 L (4.1-5.3) 10^6/u L Hgb 8.9 L (11.7-16.6) g/dL Hct 25.6 L (42.0-52.0) % MCV 92.1 (80-94) fL MCH 32.0 (28.0-34.0) pg MCHC 34.8 (30.0-36.0) g/dL RDW 11.7 L (12.1-15.1) % Plt Count 7 L* (130-400) 10^3/c mm MPV 11.0 H (7.4-10.4) fL Neut % (Auto) 27.9 % Lymph % (Auto) 58.8 % Mccracken % (Auto) 12.1 % Eos % (Auto) 0.0 % Baso % (Auto) 0.0 % Neut # (Auto) 0.46 L* (1.8-7.7) 10^3/u L Lymph # (Auto) 1.0 (0.8-4.8) 10^3/u L Mccracken # (Auto) 0.2 (0.2-0.9) 10^3/u L Eos # (Auto) 0.0 (0.0-0.8) 10^3/u L Baso # (Auto) 0.0 (0.0-0.1) 10^3/u L Nucleated RBC % (a uto) 0 % Nucleated RBCs # 0.0 /100WBC D-Dimer 6.43 H (0-0.59) ug/mIFE U Specimen Type Sample Site O2 Sat Pulse Oxime try ABG pH ABG pCO2 ABG pO2 ABG HCO3 ABG Base Excess Roland Test VBG pH (7.32-7.42) VBG pCO2 (41-51) mmHg VBG pO2 (25-40) mmHg VBG HCO3 (24-28) mmol/L VBG Base Excess (-3.0-3.0) mmol/ L VBG Hematocrit (42-52) % Hematocrit Respiration Rate O2 Delivery Device O2 Liters/Min SIMV Vent Mode Mechanical Rate Spontaneous Rate FiO2 Tidal Volume PEEP Pressure Support Pressure Control CPAP Mode BiPAP Specimen Drawn By Smoking Pipe Liner ID Crit Value Read Ba ck Blood Gas Notified Time Sodium 130 L (136-145) mmol/L Potassium 4.5 (3.5-5.1) mmol/L Chloride 95 L (98-107) mmol/L Carbon Dioxide 25 (22-29) mmol/L Anion Gap 14.5 (5-19) BUN 20 (6-20) mg/dL Creatinine 1.2 (0.7-1.2) mg/dL GFR Calculation 64.6 L (90-130) mL/min Glucose 113 (65-115) mg/dL Calculated Osmolal ity 273 L (285-295) mOsm/k g Lactate (0.5-2.2) mmol/L Calcium 8.2 L (8.5-10.5) mg/dL Total Bilirubin 0.7 (0.15-1.2) mg/dL AST 12 (0-40) U/L ALT 9 (0-41) U/L Alkaline Phosphata se 67 (40-130) IU/L Creatine Kinase 57 (39-308) U/L Troponin T Baselin e (0-15) ng/L Troponin T 120 Min [place] (0-15) ng/L Delta Troponin T (0-10) ABS# C-Reactive Protein 96.7 H (0.0-4.9) mg/L Total Protein 5.8 L (6.6-8.7) g/dL Albumin 3.6 (3.5-5.2) g/dL Globulin 2.2 (1.3-4.6) g/dL Procalcitonin 0.86 H (0-0.5) ng/mL Urine Color (Yellow) Urine Appearance (CLEAR) Urine pH (5-7) Ur Specific Gravit y (1.005-1.030) Urine Protein (Negative) Urine Glucose (UA) (Normal) Urine Ketones (Negative) Urine Blood (Negative) Urine Nitrate (Negative) Urine Bilirubin (Negative) Urine Urobilinogen (Negative) mg/dL Ur Leukocyte Miesha ase (Negative) Urine RBC (0-2) /hpf Urine WBC (0-5) /hpf Ur Squamous Epith Cells (0-5) /hpf Amorphous Sediment Urine Bacteria (NONE) /hpf Urine Mucus /hpf Blood Type Rho(D) Type 01/06/21 01/06/21 01/06/21 Range/Units 05:32 05:32 06:20 WBC (4.0-10.0) 10^3/ uL RBC (4.1-5.3) 10^6/u L Hgb (11.7-16.6) g/dL Hct (42.0-52.0) % MCV (80-94) fL MCH (28.0-34.0) pg MCHC (30.0-36.0) g/dL RDW (12.1-15.1) % Plt Count (130-400) 10^3/c mm MPV (7.4-10.4) fL Neut % (Auto) % Lymph % (Auto) % Mccracken % (Auto) % Eos % (Auto) % Baso % (Auto) % Neut # (Auto) (1.8-7.7) 10^3/u L Lymph # (Auto) (0.8-4.8) 10^3/u L Mccracken # (Auto) (0.2-0.9) 10^3/u L Eos # (Auto) (0.0-0.8) 10^3/u L Baso # (Auto) (0.0-0.1) 10^3/u L Nucleated RBC % (a uto) % Nucleated RBCs # /100WBC D-Dimer (0-0.59) ug/mIFE U Specimen Type Cancelled Sample Site Cancelled O2 Sat Pulse Oxime try Cancelled ABG pH Cancelled ABG pCO2 Cancelled ABG pO2 Cancelled ABG HCO3 Cancelled ABG Base Excess Cancelled Roland Test Cancelled VBG pH (7.32-7.42) VBG pCO2 (41-51) mmHg VBG pO2 (25-40) mmHg VBG HCO3 (24-28) mmol/L VBG Base Excess (-3.0-3.0) mmol/ L VBG Hematocrit (42-52) % Hematocrit Cancelled Respiration Rate Cancelled O2 Delivery Device Cancelled O2 Liters/Min Cancelled SIMV Cancelled Vent Mode Cancelled Mechanical Rate Cancelled Spontaneous Rate Cancelled FiO2 Cancelled Tidal Volume Cancelled PEEP Cancelled Pressure Support Cancelled Pressure Control Cancelled CPAP Cancelled Mode BiPAP Cancelled Specimen Drawn By Cancelled Smoking Pipe Liner ID Cancelled Crit Value Read Ba ck Cancelled Blood Gas Notified Time Cancelled Sodium (136-145) mmol/L Potassium (3.5-5.1) mmol/L Chloride (98-107) mmol/L Carbon Dioxide (22-29) mmol/L Anion Gap (5-19) BUN (6-20) mg/dL Creatinine (0.7-1.2) mg/dL GFR Calculation (90-130) mL/min Glucose (65-115) mg/dL Calculated Osmolal ity (285-295) mOsm/k g Lactate 0.9 (0.5-2.2) mmol/L Calcium (8.5-10.5) mg/dL Total Bilirubin (0.15-1.2) mg/dL AST (0-40) U/L ALT (0-41) U/L Alkaline Phosphata se (40-130) IU/L Creatine Kinase (39-308) U/L Troponin T Baselin e 18 H (0-15) ng/L Troponin T 120 Min [place] (0-15) ng/L Delta Troponin T (0-10) ABS# C-Reactive Protein (0.0-4.9) mg/L Total Protein (6.6-8.7) g/dL Albumin (3.5-5.2) g/dL Globulin (1.3-4.6) g/dL Procalcitonin (0-0.5) ng/mL Urine Color (Yellow) Urine Appearance (CLEAR) Urine pH (5-7) Ur Specific Gravit y (1.005-1.030) Urine Protein (Negative) Urine Glucose (UA) (Normal) Urine Ketones (Negative) Urine Blood (Negative) Urine Nitrate (Negative) Urine Bilirubin (Negative) Urine Urobilinogen (Negative) mg/dL Ur Leukocyte Miesha ase (Negative) Urine RBC (0-2) /hpf Urine WBC (0-5) /hpf Ur Squamous Epith Cells (0-5) /hpf Amorphous Sediment Urine Bacteria (NONE) /hpf Urine Mucus /hpf Blood Type Rho(D) Type 01/06/21 01/06/21 01/06/21 Range/Units 06:34 06:39 07:57 WBC (4.0-10.0) 10^3/ uL RBC (4.1-5.3) 10^6/u L Hgb (11.7-16.6) g/dL Hct (42.0-52.0) % MCV (80-94) fL MCH (28.0-34.0) pg MCHC (30.0-36.0) g/dL RDW (12.1-15.1) % Plt Count (130-400) 10^3/c mm MPV (7.4-10.4) fL Neut % (Auto) % Lymph % (Auto) % Mccracken % (Auto) % Eos % (Auto) % Baso % (Auto) % Neut # (Auto) (1.8-7.7) 10^3/u L Lymph # (Auto) (0.8-4.8) 10^3/u L Mccracken # (Auto) (0.2-0.9) 10^3/u L Eos # (Auto) (0.0-0.8) 10^3/u L Baso # (Auto) (0.0-0.1) 10^3/u L Nucleated RBC % (a uto) % Nucleated RBCs # /100WBC D-Dimer (0-0.59) ug/mIFE U Specimen Type Not Reportable Sample Site Not Reportable O2 Sat Pulse Oxime try ABG pH ABG pCO2 ABG pO2 ABG HCO3 ABG Base Excess Roland Test pos VBG pH 7.40 (7.32-7.42) VBG pCO2 43.6 (41-51) mmHg VBG pO2 36.6 (25-40) mmHg VBG HCO3 26.9 (24-28) mmol/L VBG Base Excess 1.9 (-3.0-3.0) mmol/ L VBG Hematocrit 7.4 L (42-52) % Hematocrit Respiration Rate O2 Delivery Device nc O2 Liters/Min SIMV Vent Mode Mechanical Rate Spontaneous Rate FiO2 28.0 Tidal Volume PEEP Pressure Support Pressure Control CPAP Mode BiPAP Specimen Drawn By Smoking Pipe Liner ID monro Crit Value Read Ba ck Blood Gas Notified Time Sodium (136-145) mmol/L Potassium (3.5-5.1) mmol/L Chloride (98-107) mmol/L Carbon Dioxide (22-29) mmol/L Anion Gap (5-19) BUN (6-20) mg/dL Creatinine (0.7-1.2) mg/dL GFR Calculation (90-130) mL/min Glucose (65-115) mg/dL Calculated Osmolal ity (285-295) mOsm/k g Lactate (0.5-2.2) mmol/L Calcium (8.5-10.5) mg/dL Total Bilirubin (0.15-1.2) mg/dL AST (0-40) U/L ALT (0-41) U/L Alkaline Phosphata se (40-130) IU/L Creatine Kinase (39-308) U/L Troponin T Baselin e (0-15) ng/L Troponin T 120 Min [place] 17.82 H (0-15) ng/L Delta Troponin T -0.18 L (0-10) ABS# C-Reactive Protein (0.0-4.9) mg/L Total Protein (6.6-8.7) g/dL Albumin (3.5-5.2) g/dL Globulin (1.3-4.6) g/dL Procalcitonin (0-0.5) ng/mL Urine Color Yellow (Yellow) Urine Appearance Clear (CLEAR) Urine pH 5 (5-7) Ur Specific Gravit y 1.015 (1.005-1.030) Urine Protein Trace (Negative) Urine Glucose (UA) Norm (Normal) Urine Ketones Negative (Negative) Urine Blood Neg (Negative) Urine Nitrate Negative (Negative) Urine Bilirubin Neg (Negative) Urine Urobilinogen Norm (Negative) mg/dL Ur Leukocyte Miesha ase Negative (Negative) Urine RBC None (0-2) /hpf Urine WBC None (0-5) /hpf Ur Squamous Epith Cells None (0-5) /hpf Amorphous Sediment Not Reportable Urine Bacteria Trace (NONE) /hpf Urine Mucus 2+ /hpf Blood Type Rho(D) Type 01/06/21 Range/Units 09:50 WBC (4.0-10.0) 10^3/ uL RBC (4.1-5.3) 10^6/u L Hgb (11.7-16.6) g/dL Hct (42.0-52.0) % MCV (80-94) fL MCH (28.0-34.0) pg MCHC (30.0-36.0) g/dL RDW (12.1-15.1) % Plt Count (130-400) 10^3/c mm MPV (7.4-10.4) fL Neut % (Auto) % Lymph % (Auto) % Mccracken % (Auto) % Eos % (Auto) % Baso % (Auto) % Neut # (Auto) (1.8-7.7) 10^3/u L Lymph # (Auto) (0.8-4.8) 10^3/u L Mccracken # (Auto) (0.2-0.9) 10^3/u L Eos # (Auto) (0.0-0.8) 10^3/u L Baso # (Auto) (0.0-0.1) 10^3/u L Nucleated RBC % (a uto) % Nucleated RBCs # /100WBC D-Dimer (0-0.59) ug/mIFE U Specimen Type Sample Site O2 Sat Pulse Oxime try ABG pH ABG pCO2 ABG pO2 ABG HCO3 ABG Base Excess Roland Test VBG pH (7.32-7.42) VBG pCO2 (41-51) mmHg VBG pO2 (25-40) mmHg VBG HCO3 (24-28) mmol/L VBG Base Excess (-3.0-3.0) mmol/ L VBG Hematocrit (42-52) % Hematocrit Respiration Rate O2 Delivery Device O2 Liters/Min SIMV Vent Mode Mechanical Rate Spontaneous Rate FiO2 Tidal Volume PEEP Pressure Support Pressure Control CPAP Mode BiPAP Specimen Drawn By Smoking Pipe Liner ID Crit Value Read Ba ck Blood Gas Notified Time Sodium (136-145) mmol/L Potassium (3.5-5.1) mmol/L Chloride (98-107) mmol/L Carbon Dioxide (22-29) mmol/L Anion Gap (5-19) BUN (6-20) mg/dL Creatinine (0.7-1.2) mg/dL GFR Calculation (90-130) mL/min Glucose (65-115) mg/dL Calculated Osmolal ity (285-295) mOsm/k g Lactate (0.5-2.2) mmol/L Calcium (8.5-10.5) mg/dL Total Bilirubin (0.15-1.2) mg/dL AST (0-40) U/L ALT (0-41) U/L Alkaline Phosphata se (40-130) IU/L Creatine Kinase (39-308) U/L Troponin T Baselin e (0-15) ng/L Troponin T 120 Min [place] (0-15) ng/L Delta Troponin T (0-10) ABS# C-Reactive Protein (0.0-4.9) mg/L Total Protein (6.6-8.7) g/dL Albumin (3.5-5.2) g/dL Globulin (1.3-4.6) g/dL Procalcitonin (0-0.5) ng/mL Urine Color (Yellow) Urine Appearance (CLEAR) Urine pH (5-7) Ur Specific Gravit y (1.005-1.030) Urine Protein (Negative) Urine Glucose (UA) (Normal) Urine Ketones (Negative) Urine Blood (Negative) Urine Nitrate (Negative) Urine Bilirubin (Negative) Urine Urobilinogen (Negative) mg/dL Ur Leukocyte Miesha ase (Negative) Urine RBC (0-2) /hpf Urine WBC (0-5) /hpf Ur Squamous Epith Cells (0-5) /hpf Amorphous Sediment Urine Bacteria (NONE) /hpf Urine Mucus /hpf Blood Type A Positive Rho(D) Type Positive / 4+ Discharge Plan Discharge Patient Disposition: Home Clinical Impression: AML (acute myeloblastic leukemia), Anemia, Thrombocytopenia, Leukopenia Condition: Stable Discharge Orders: Discharge Order (Routine); Ordered 01/06/21 Ordered By: Tiffanie Penny Discharge Diet: Advance as tolerated Discharge Activity: Resume usual activity Coding Level of Care Code 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 Documented by User: Jesse Orlando DO 01/07/21 18:01 HPI - Abdominal Pain General: Chief Complaint: ER Hold Stated Complaint: aml flare up Time Seen by Provider: 01/06/21 05:04 [facility] ED PFS: Medical History (Updated 01/07/21 @ 18:01 by Jesse Orlando DO) AML (acute myeloblastic leukemia) (~05/2020) Has received some chemotherapy and had multiple bone marrow biopsies. Not wanting further treatment or hospitalization at this time. History of anemia Orthostatic hypotension Surgical History (Updated 01/06/21 @ 15:32 by Tiffanie Penny MD) History of bone marrow biopsy multiple Family History (Updated 01/06/21 @ 15:33 by Tiffanie Penny MD) Denies family history of Cancer Social History (Updated 01/06/21 @ 15:33 by Tiffanie Penny MD) Smoking and tobacco status: current every day smoker Alcohol intake: never Substance/Drug Use: never Course Vital Signs: Vital signs: Vital Signs Temperature 97.8 F 01/06/21 17:33 Pulse Rate 91 01/06/21 17:33 Respiratory Rate 19 H 01/06/21 17:33 Blood Pressure 112/62 01/06/21 17:33 Pulse Oximetry 96 01/06/21 17:33 MDM - Abdominal Pain MDM Narrative: Medical decision making narrative: Care assumed a change of shift. Patient did ultimately decide to stay we work with hospitalist Dr. Penny and managed him down here in the. urgency room. Once platelets are available they are transfused here and eventually patient was dismissed from the emergency room by Dr. Penny. H Lab Data: Labs: Lab Results 01/06/21 01/06/21 01/06/21 Range/Units 05:32 05:32 05:32 WBC 1.7 L (4.0-10.0) 10^3/ uL RBC 2.78 L (4.1-5.3) 10^6/u L Hgb 8.9 L (11.7-16.6) g/dL Hct 25.6 L (42.0-52.0) % MCV 92.1 (80-94) fL MCH 32.0 (28.0-34.0) pg MCHC 34.8 (30.0-36.0) g/dL RDW 11.7 L (12.1-15.1) % Plt Count 7 L* (130-400) 10^3/c mm MPV 11.0 H (7.4-10.4) fL Neut % (Auto) 27.9 % Lymph % (Auto) 58.8 % Mccracken % (Auto) 12.1 % Eos % (Auto) 0.0 % Baso % (Auto) 0.0 % Neut # (Auto) 0.46 L* (1.8-7.7) 10^3/u L Lymph # (Auto) 1.0 (0.8-4.8) 10^3/u L Mccracken # (Auto) 0.2 (0.2-0.9) 10^3/u L Eos # (Auto) 0.0 (0.0-0.8) 10^3/u L Baso # (Auto) 0.0 (0.0-0.1) 10^3/u L Nucleated RBC % (a uto) 0 % Nucleated RBCs # 0.0 /100WBC D-Dimer 6.43 H (0-0.59) ug/mIFE U Specimen Type Sample Site O2 Sat Pulse Oxime try ABG pH ABG pCO2 ABG pO2 ABG HCO3 ABG Base Excess Roland Test VBG pH (7.32-7.42) VBG pCO2 (41-51) mmHg VBG pO2 (25-40) mmHg VBG HCO3 (24-28) mmol/L VBG Base Excess (-3.0-3.0) mmol/ L VBG Hematocrit (42-52) % Hematocrit Respiration Rate O2 Delivery Device O2 Liters/Min SIMV Vent Mode Mechanical Rate Spontaneous Rate FiO2 Tidal Volume PEEP Pressure Support Pressure Control CPAP Mode BiPAP Specimen Drawn By Smoking Pipe Liner ID Crit Value Read Ba ck Blood Gas Notified Time Sodium 130 L (136-145) mmol/L Potassium 4.5 (3.5-5.1) mmol/L Chloride 95 L (98-107) mmol/L Carbon Dioxide 25 (22-29) mmol/L Anion Gap 14.5 (5-19) BUN 20 (6-20) mg/dL Creatinine 1.2 (0.7-1.2) mg/dL GFR Calculation 64.6 L (90-130) mL/min Glucose 113 (65-115) mg/dL Calculated Osmolal ity 273 L (285-295) mOsm/k g Lactate (0.5-2.2) mmol/L Calcium 8.2 L (8.5-10.5) mg/dL Total Bilirubin 0.7 (0.15-1.2) mg/dL AST 12 (0-40) U/L ALT 9 (0-41) U/L Alkaline Phosphata se 67 (40-130) IU/L Creatine Kinase 57 (39-308) U/L Troponin T Baselin e (0-15) ng/L Troponin T 120 Min [place] (0-15) ng/L Delta Troponin T (0-10) ABS# C-Reactive Protein 96.7 H (0.0-4.9) mg/L Total Protein 5.8 L (6.6-8.7) g/dL Albumin 3.6 (3.5-5.2) g/dL Globulin 2.2 (1.3-4.6) g/dL Procalcitonin 0.86 H (0-0.5) ng/mL Urine Color (Yellow) Urine Appearance (CLEAR) Urine pH (5-7) Ur Specific Gravit y (1.005-1.030) Urine Protein (Negative) Urine Glucose (UA) (Normal) Urine Ketones (Negative) Urine Blood (Negative) Urine Nitrate (Negative) Urine Bilirubin (Negative) Urine Urobilinogen (Negative) mg/dL Ur Leukocyte Miesha ase (Negative) Urine RBC (0-2) /hpf Urine WBC (0-5) /hpf Ur Squamous Epith Cells (0-5) /hpf Amorphous Sediment Urine Bacteria (NONE) /hpf Urine Mucus /hpf Blood Type Rho(D) Type 01/06/21 01/06/21 01/06/21 Range/Units 05:32 05:32 06:20 WBC (4.0-10.0) 10^3/ uL RBC (4.1-5.3) 10^6/u L Hgb (11.7-16.6) g/dL Hct (42.0-52.0) % MCV (80-94) fL MCH (28.0-34.0) pg MCHC (30.0-36.0) g/dL RDW (12.1-15.1) % Plt Count (130-400) 10^3/c mm MPV (7.4-10.4) fL Neut % (Auto) % Lymph % (Auto) % Mccracken % (Auto) % Eos % (Auto) % Baso % (Auto) % Neut # (Auto) (1.8-7.7) 10^3/u L Lymph # (Auto) (0.8-4.8) 10^3/u L Mccracken # (Auto) (0.2-0.9) 10^3/u L Eos # (Auto) (0.0-0.8) 10^3/u L Baso # (Auto) (0.0-0.1) 10^3/u L Nucleated RBC % (a uto) % Nucleated RBCs # /100WBC D-Dimer (0-0.59) ug/mIFE U Specimen Type Cancelled Sample Site Cancelled O2 Sat Pulse Oxime try Cancelled ABG pH Cancelled ABG pCO2 Cancelled ABG pO2 Cancelled ABG HCO3 Cancelled ABG Base Excess Cancelled Roland Test Cancelled VBG pH (7.32-7.42) VBG pCO2 (41-51) mmHg VBG pO2 (25-40) mmHg VBG HCO3 (24-28) mmol/L VBG Base Excess (-3.0-3.0) mmol/ L VBG Hematocrit (42-52) % Hematocrit Cancelled Respiration Rate Cancelled O2 Delivery Device Cancelled O2 Liters/Min Cancelled SIMV Cancelled Vent Mode Cancelled Mechanical Rate Cancelled Spontaneous Rate Cancelled FiO2 Cancelled Tidal Volume Cancelled PEEP Cancelled Pressure Support Cancelled Pressure Control Cancelled CPAP Cancelled Mode BiPAP Cancelled Specimen Drawn By Cancelled Smoking Pipe Liner ID Cancelled Crit Value Read Ba ck Cancelled Blood Gas Notified Time Cancelled Sodium (136-145) mmol/L Potassium (3.5-5.1) mmol/L Chloride (98-107) mmol/L Carbon Dioxide (22-29) mmol/L Anion Gap (5-19) BUN (6-20) mg/dL Creatinine (0.7-1.2) mg/dL GFR Calculation (90-130) mL/min Glucose (65-115) mg/dL Calculated Osmolal ity (285-295) mOsm/k g Lactate 0.9 (0.5-2.2) mmol/L Calcium (8.5-10.5) mg/dL Total Bilirubin (0.15-1.2) mg/dL AST (0-40) U/L ALT (0-41) U/L Alkaline Phosphata se (40-130) IU/L Creatine Kinase (39-308) U/L Troponin T Baselin e 18 H (0-15) ng/L Troponin T 120 Min [place] (0-15) ng/L Delta Troponin T (0-10) ABS# C-Reactive Protein (0.0-4.9) mg/L Total Protein (6.6-8.7) g/dL Albumin (3.5-5.2) g/dL Globulin (1.3-4.6) g/dL Procalcitonin (0-0.5) ng/mL Urine Color (Yellow) Urine Appearance (CLEAR) Urine pH (5-7) Ur Specific Gravit y (1.005-1.030) Urine Protein (Negative) Urine Glucose (UA) (Normal) Urine Ketones (Negative) Urine Blood (Negative) Urine Nitrate (Negative) Urine Bilirubin (Negative) Urine Urobilinogen (Negative) mg/dL Ur Leukocyte Miesha ase (Negative) Urine RBC (0-2) /hpf Urine WBC (0-5) /hpf Ur Squamous Epith Cells (0-5) /hpf Amorphous Sediment Urine Bacteria (NONE) /hpf Urine Mucus /hpf Blood Type Rho(D) Type 01/06/21 01/06/21 01/06/21 Range/Units 06:34 06:39 07:57 WBC (4.0-10.0) 10^3/ uL RBC (4.1-5.3) 10^6/u L Hgb (11.7-16.6) g/dL Hct (42.0-52.0) % MCV (80-94) fL MCH (28.0-34.0) pg MCHC (30.0-36.0) g/dL RDW (12.1-15.1) % Plt Count (130-400) 10^3/c mm MPV (7.4-10.4) fL Neut % (Auto) % Lymph % (Auto) % Mccracken % (Auto) % Eos % (Auto) % Baso % (Auto) % Neut # (Auto) (1.8-7.7) 10^3/u L Lymph # (Auto) (0.8-4.8) 10^3/u L Mccracken # (Auto) (0.2-0.9) 10^3/u L Eos # (Auto) (0.0-0.8) 10^3/u L Baso # (Auto) (0.0-0.1) 10^3/u L Nucleated RBC % (a uto) % Nucleated RBCs # /100WBC D-Dimer (0-0.59) ug/mIFE U Specimen Type Not Reportable Sample Site Not Reportable O2 Sat Pulse Oxime try ABG pH ABG pCO2 ABG pO2 ABG HCO3 ABG Base Excess Roland Test pos VBG pH 7.40 (7.32-7.42) VBG pCO2 43.6 (41-51) mmHg VBG pO2 36.6 (25-40) mmHg VBG HCO3 26.9 (24-28) mmol/L VBG Base Excess 1.9 (-3.0-3.0) mmol/ L VBG Hematocrit 7.4 L (42-52) % Hematocrit Respiration Rate O2 Delivery Device nc O2 Liters/Min SIMV Vent Mode Mechanical Rate Spontaneous Rate FiO2 28.0 Tidal Volume PEEP Pressure Support Pressure Control CPAP Mode BiPAP Specimen Drawn By Smoking Pipe Liner TERRENCE Roach Value Read Ba ck Blood Gas Notified Time Sodium (136-145) mmol/L Potassium (3.5-5.1) mmol/L Chloride (98-107) mmol/L Carbon Dioxide (22-29) mmol/L Anion Gap (5-19) BUN (6-20) mg/dL Creatinine (0.7-1.2) mg/dL GFR Calculation (90-130) mL/min Glucose (65-115) mg/dL Calculated Osmolal ity (285-295) mOsm/k g Lactate (0.5-2.2) mmol/L Calcium (8.5-10.5) mg/dL Total Bilirubin (0.15-1.2) mg/dL AST (0-40) U/L ALT (0-41) U/L Alkaline Phosphata se (40-130) IU/L Creatine Kinase (39-308) U/L Troponin T Baselin e (0-15) ng/L Troponin T 120 Min [employer] [place] [place] 17.82 H (0-15) ng/L Delta Troponin T -0.18 L (0-10) ABS# C-Reactive Protein (0.0-4.9) mg/L Total Protein (6.6-8.7) g/dL Albumin (3.5-5.2) g/dL Globulin (1.3-4.6) g/dL Procalcitonin (0-0.5) ng/mL Urine Color Yellow (Yellow) Urine Appearance Clear (CLEAR) Urine pH 5 (5-7) Ur Specific Gravit y 1.015 (1.005-1.030) Urine Protein Trace (Negative) Urine Glucose (UA) Norm (Normal) Urine Ketones Negative (Negative) Urine Blood Neg (Negative) Urine Nitrate Negative (Negative) Urine Bilirubin Neg (Negative) Urine Urobilinogen Norm (Negative) mg/dL Ur Leukocyte Miesha ase Negative (Negative) Urine RBC None (0-2) /hpf Urine WBC None (0-5) /hpf Ur Squamous Epith Cells None (0-5) /hpf Amorphous Sediment Not Reportable Urine Bacteria Trace (NONE) /hpf Urine Mucus 2+ /hpf Blood Type Rho(D) Type 01/06/21 Range/Units 09:50 WBC (4.0-10.0) 10^3/ uL RBC (4.1-5.3) 10^6/u L Hgb (11.7-16.6) g/dL Hct (42.0-52.0) % MCV (80-94) fL MCH (28.0-34.0) pg MCHC (30.0-36.0) g/dL RDW (12.1-15.1) % Plt Count (130-400) 10^3/c mm MPV (7.4-10.4) fL Neut % (Auto) % Lymph % (Auto) % Mccracken % (Auto) % Eos % (Auto) % Baso % (Auto) % Neut # (Auto) (1.8-7.7) 10^3/u L Lymph # (Auto) (0.8-4.8) 10^3/u L Mccracken # (Auto) (0.2-0.9) 10^3/u L Eos # (Auto) (0.0-0.8) 10^3/u L Baso # (Auto) (0.0-0.1) 10^3/u L Nucleated RBC % (a uto) % Nucleated RBCs # /100WBC D-Dimer (0-0.59) ug/mIFE U Specimen Type Sample Site O2 Sat Pulse Oxime try ABG pH ABG pCO2 ABG pO2 ABG HCO3 ABG Base Excess Roland Test VBG pH (7.32-7.42) VBG pCO2 (41-51) mmHg VBG pO2 (25-40) mmHg VBG HCO3 (24-28) mmol/L VBG Base Excess (-3.0-3.0) mmol/ L VBG Hematocrit (42-52) % Hematocrit Respiration Rate O2 Delivery Device O2 Liters/Min SIMV Vent Mode Mechanical Rate Spontaneous Rate FiO2 Tidal Volume PEEP Pressure Support Pressure Control CPAP Mode BiPAP Specimen Drawn By Smoking Pipe Liner ID Crit Value Read Ba ck Blood Gas Notified Time Sodium (136-145) mmol/L Potassium (3.5-5.1) mmol/L Chloride (98-107) mmol/L Carbon Dioxide (22-29) mmol/L Anion Gap (5-19) BUN (6-20) mg/dL Creatinine (0.7-1.2) mg/dL GFR Calculation (90-130) mL/min Glucose (65-115) mg/dL Calculated Osmolal ity (285-295) mOsm/k g Lactate (0.5-2.2) mmol/L Calcium (8.5-10.5) mg/dL Total Bilirubin (0.15-1.2) mg/dL AST (0-40) U/L ALT (0-41) U/L Alkaline Phosphata se (40-130) IU/L Creatine Kinase (39-308) U/L Troponin T Baselin e (0-15) ng/L Troponin T 120 Min [employer] [place] [place] (0-15) ng/L Delta Troponin T (0-10) ABS# C-Reactive Protein (0.0-4.9) mg/L Total Protein (6.6-8.7) g/dL Albumin (3.5-5.2) g/dL Globulin (1.3-4.6) g/dL Procalcitonin (0-0.5) ng/mL Urine Color (Yellow) Urine Appearance (CLEAR) Urine pH (5-7) Ur Specific Gravit y (1.005-1.030) Urine Protein (Negative) Urine Glucose (UA) (Normal) Urine Ketones (Negative) Urine Blood (Negative) Urine Nitrate (Negative) Urine Bilirubin (Negative) Urine Urobilinogen (Negative) mg/dL Ur Leukocyte Miesha ase (Negative) Urine RBC (0-2) /hpf Urine WBC (0-5) /hpf Ur Squamous Epith Cells (0-5) /hpf Amorphous Sediment Urine Bacteria (NONE) /hpf Urine Mucus /hpf Blood Type A Positive Rho(D) Type Positive / 4+ Discharge Plan Discharge Patient Disposition: Home Clinical Impression: AML (acute myeloblastic leukemia), Anemia, Thrombocytopenia, Leukopenia Condition: Stable Discharge Orders: Discharge Order (Routine); Ordered 01/06/21 Ordered By: Tiffanie Penny Discharge Diet: Advance as tolerated Discharge Activity: Resume usual activity Coding Level of Care Code 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
--- NOTE | 2021-01-06 11:13 | ECG_ITS ---
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 Measurements Intervals [place] Rate: 87 P: 75 NE: 152 QRS: 87 QRSD: 105 T: 79 QT: 368 QTc: 444 Interpretive Statements SINUS RHYTHM Compared to ECG 01/06/2021 07:33:03 No significant changes Electronically Signed On 01-11-2021 12:42:46 CDT by Mariya Maher M.D. [email or web address] [email or web address] [email or web address] [id number]
[2021-01-06 12:08] LABS: Troponin 5 6HR 15.13 ng/L (0-15)
[2021-01-06 12:35] LABS: Troponin 5 6HR Delta -2.87 ng/L (0-12)
--- NOTE | 2021-01-06 14:49 | P.SS_ITS ---
Short Stay Summary Providers Date of Admit/Discharge: 01/06/21 Attending Provider: Dr. Penny Primary Care Provider: Hernando Cuenca MD Chief Complaint: aml flare up HPI History of Present Illness Sukhdeep Hyde is a 50 year old male who presented to the emergency room with chief complaint of abdominal pain. He has a history of AML. He was treated at [place]. He was diagnosed in May 2020. He spent 4 to 5 months in the hospital in [place]. He has refused further treatment and does not want to be hospitalized again. He did receive chemotherapy but it has been several months since his last dose. Patient awoke with complaints of abdominal pain that went into his back as well as some nausea. No vomiting or diarrhea. Denies any changes in bowel patterns. Pain was described as severe. He received 2 doses of morphine IV and 2 doses of Zofran plus some IV fluids. Symptoms have since resolved. He had been taking Aleve at home for pain. Review of Systems Const: Reports: fatigue; Denies: fever(s), chills, body aches, change in appetite, change in weight or night sweats Eyes: Denies: change in vision ENMT: Denies: throat pain, oral sores, bleeding gums, nasal congestion or epistaxis Card: Denies: chest pain, palpitations or edema Resp: Reports: non-productive cough; Denies: dyspnea, productive cough or hemoptysis GI: Reports: abdominal pain and nausea; Denies: vomiting, diarrhea, constipation, hematochezia or melena : Denies: hematuria Musc: Reports: back pain and joint pain (knees); Denies: joint swelling or limited range of motion Skin/Breast: Denies: rash, pruritus, sores or new lesions Neuro: Denies: headache(s), numbness in extremities, weakness in extremities or difficulty walking Psych: Denies: anxiety or depression Main/Lymph: Denies: easy bruising, easy bleeding, petechiae or purpura Home Meds/Allergies Home Medications and Allergies Home Medications Medication Instructions Recorded Confirmed Type multivitamin 1 tab PO DAILY 01/06/21 01/06/21 History Allergies Allergy/AdvReac Type Severity Reaction Status Date / Time No Known Allergies Allergy Verified 01/06/21 10:43 Additional Medication Information was taking aleve at home for pain PFSH Acute PFSH: Medical History (Updated 01/06/21 @ 16:28 by Tiffanie Penny MD) AML (acute myeloblastic leukemia) (~05/2020) Has received some chemotherapy and had multiple bone marrow biopsies. Not wanting further treatment or hospitalization at this time. History of anemia Orthostatic hypotension Surgical History (Updated 01/06/21 @ 15:32 by Tiffanie Penny MD) History of bone marrow biopsy multiple Family History (Updated 01/06/21 @ 15:33 by Tiffanie Penny MD) Denies family history of Cancer Social History (Updated 01/06/21 @ 15:33 by Tiffanie Penny MD) Smoking and tobacco status: current every day smoker Alcohol intake: never Substance/Drug Use: never Vitals/I&O/Wt Last Vital Signs Temp 97.9 F 01/06/21 14:15 Pulse 86 01/06/21 14:15 Resp 16 01/06/21 14:15 BP 95/51 01/06/21 14:15 Pulse Ox 93 01/06/21 14:00 01/05/21 01/06/21 01/06/21 22:59 06:59 14:59 Intake Total 1000 / 1000 0 / 0 Balance 1000 / 1000 0 / 0 Weight last 48 hrs Weight 97.069 kg Physical Exam Const: OTHER: Alert, oriented x3, cooperative HENMT: OTHER: Normocephalic atraumatic, moist mucus membranes, no cough or rhinorrea Eye: OTHER: Pupils equally round and reactive to light, anicteric Neck/C-Spine: OTHER: Supple Resp: OTHER: Clear to auscultation bilaterally, no rales, rhonchi or wheezes noted Cardio: OTHER: Regular rate and rhythm, no murmurs gallops or rubs. Pulses equal throughout GI: OTHER: Abdomen soft, nontender, nondistended with positive bowel sounds, no flank pain. : OTHER: Deferred Extremity: OTHER: No cyanosis, clubbing or edema, no acute synovitis. No effusions or limitation in rom noted. Neuro: OTHER: Face symmetric, speech clear, moves all extremities Psych: OTHER: Normal affect Skin: OTHER: Pale, no noticable bruising or petechia or bleeding Hospital Course Admission Diagnoses Same as discharge diagnoses Hospital Course Patient was admitted to a medical bed. Order was placed for platelets which were subsequently transfused. Patient tolerated transfusion well. ED provider had discussed the plan with his oncologist in [place] who recommended transfusion of platelets. With some of his laboratory findings it would have been good to exclude early Covid particularly with his immunocompromise however imaging studies were completely unremarkable of the chest abdomen and pelvis. No evidence of bleeding was noted. With his neutropenia I wrote for prescription fo r Levaquin if he has fever but clearly stated that he should not take antibiotic over getting tested for Covid. I explained the treatment options a monoclonal antibody therapy being time limited in terms of their utility and that he would be an excellent candidate for that should he develop Covid. I am thinking that the abdominal pain and upset stomach may have been GI related. No report of any blood in the stools or black tarry stools however he is on NSAID therapy and has a platelet count of 7. I therefore wrote him a 2-week prescription of Protonix just to protect his stomach and hopefully his platelets will come back up. Discharging him home. Recommend follow-up with his oncologist but in talking with him he does not really wish to pursue further care. SSS Data Data Completed and Pending: Laboratory Results WBC 1.7 10^3/uL (4.0- 10.0) L 01/06/21 05:32 RBC 2.78 10^6/uL (4.1 -5.3) L 01/06/21 05:32 Hgb 8.9 g/dL (11.7-16 .6) L 01/06/21 05:32 Hct 25.6 % (42.0-52.0 ) L 01/06/21 05:32 MCV 92.1 fL (80-94) 01/06/21 05:32 MCH 32.0 pg (28.0-34. 0) 01/06/21 05:32 MCHC 34.8 g/dL (30.0-3 6.0) 01/06/21 05:32 RDW 11.7 % (12.1-15.1 ) L 01/06/21 05:32 Plt Count 7 10^3/cmm (130-4 00) L* 01/06/21 05:32 MPV 11.0 fL (7.4-10.4 ) H 01/06/21 05:32 Neut % (Auto) 27.9 % 01/06/21 05:32 Lymph % (Auto) 58.8 % 01/06/21 05:32 [place] % (Auto) 12.1 % 01/06/21 05:32 Eos % (Auto) 0.0 % 01/06/21 05:32 Baso % (Auto) 0.0 % 01/06/21 05:32 Neut # (Auto) 0.46 10^3/uL (1.8 -7.7) L* 01/06/21 05:32 Lymph # (Auto) 1.0 10^3/uL (0.8- 4.8) 01/06/21 05:32 [place] # (Auto) 0.2 10^3/uL (0.2- 0.9) 01/06/21 05:32 Eos # (Auto) 0.0 10^3/uL (0.0- 0.8) 01/06/21 05:32 Baso # (Auto) 0.0 10^3/uL (0.0- 0.1) 01/06/21 05:32 Nucleated RBC % (a uto) 0 % 01/06/21 05:32 Nucleated RBCs # 0.0 /100WBC 01/06/21 05:32 D-Dimer 6.43 ug/mIFEU (0- 0.59) H 01/06/21 05:32 Specimen Type Not Reportable 01/06/21 06:39 Sample Site Not Reportable 01/06/21 06:39 O2 Sat Pulse Oxime try Cancelled 01/06/21 06:20 ABG pH Cancelled 01/06/21 06:20 ABG pCO2 Cancelled 01/06/21 06:20 ABG pO2 Cancelled 01/06/21 06:20 ABG HCO3 Cancelled 01/06/21 06:20 ABG Base Excess Cancelled 01/06/21 06:20 Roland Test pos 01/06/21 06:39 VBG pH 7.40 (7.32-7.42) 01/06/21 06:39 VBG pCO2 43.6 mmHg (41-51) 01/06/21 06:39 VBG pO2 36.6 mmHg (25-40) 01/06/21 06:39 VBG HCO3 26.9 mmol/L (24-2 8) 01/06/21 06:39 VBG Base Excess 1.9 mmol/L (-3.0- 3.0) 01/06/21 06:39 VBG Hematocrit 7.4 % (42-52) L 01/06/21 06:39 Hematocrit Cancelled 01/06/21 06:20 Respiration Rate Cancelled 01/06/21 06:20 O2 Delivery Device nc 01/06/21 06:39 O2 Liters/Min Cancelled 01/06/21 06:20 SIMV Cancelled 01/06/21 06:20 Vent Mode Cancelled 01/06/21 06:20 Mechanical Rate Cancelled 01/06/21 06:20 Spontaneous Rate Cancelled 01/06/21 06:20 FiO2 28.0 % 01/06/21 06:39 Tidal Volume Cancelled 01/06/21 06:20 PEEP Cancelled 01/06/21 06:20 Pressure Support Cancelled 01/06/21 06:20 Pressure Control Cancelled 01/06/21 06:20 CPAP Cancelled 01/06/21 06:20 Mode BiPAP Cancelled 01/06/21 06:20 Specimen Drawn By Cancelled 01/06/21 06:20 Corporate Tax Manager ID max 01/06/21 06:39 Crit Value Read Ba ck Cancelled 01/06/21 06:20 Blood Gas Notified Time Cancelled 01/06/21 06:20 Sodium 130 mmol/L (136-1 45) L 01/06/21 05:32 Potassium 4.5 mmol/L (3.5-5 .1) 01/06/21 05:32 Chloride 95 mmol/L (98-107 ) L 01/06/21 05:32 Carbon Dioxide 25 mmol/L (22-29) 01/06/21 05:32 Anion Gap 14.5 (5-19) 01/06/21 05:32 BUN 20 mg/dL (6-20) 01/06/21 05:32 Creatinine 1.2 mg/dL (0.7-1. 2) 01/06/21 05:32 GFR Calculation 64.6 mL/min (90-1 30) L 01/06/21 05:32 Glucose 113 mg/dL (65-115 ) 01/06/21 05:32 Calculated Osmolal ity 273 mOsm/kg (285- 295) L 01/06/21 05:32 Lactate 0.9 mmol/L (0.5-2 .2) 01/06/21 05:32 Calcium 8.2 mg/dL (8.5-10 .5) L 01/06/21 05:32 Total Bilirubin 0.7 mg/dL (0.15-1 .2) 01/06/21 05:32 AST 12 U/L (0-40) 01/06/21 05:32 ALT 9 U/L (0-41) 01/06/21 05:32 Alkaline Phosphata se 67 IU/L (40-130) 01/06/21 05:32 Creatine Kinase 57 U/L (39-308) 01/06/21 05:32 Troponin T Baselin e 18 ng/L (0-15) H 01/06/21 05:32 Troponin T 120 Min [place] 17.82 ng/L (0-15) H 01/06/21 07:57 Delta Troponin T -0.18 ABS# (0-10) L 01/06/21 07:57 Troponin T Hi Sens 6Hr 15.13 ng/L (0-15) H 01/06/21 11:26 Troponin T Hi Sens 6Hr Delta -2.87 ng/L (0-12) L 01/06/21 11:26 C-Reactive Protein 96.7 mg/L (0.0-4. 9) H 01/06/21 05:32 Total Protein 5.8 g/dL (6.6-8.7 ) L 01/06/21 05:32 Albumin 3.6 g/dL (3.5-5.2 ) 01/06/21 05:32 Globulin 2.2 g/dL (1.3-4.6 ) 01/06/21 05:32 Procalcitonin 0.86 ng/mL (0-0.5 ) H 01/06/21 05:32 Urine Color Yellow (Yellow) 01/06/21 06:34 Urine Appearance Clear (CLEAR) 01/06/21 06:34 Urine pH 5 (5-7) 01/06/21 06:34 Ur Specific Gravit y 1.015 (1.005-1.0 30) 01/06/21 06:34 Urine Protein Trace (Negative) 01/06/21 06:34 Urine Glucose (UA) Norm (Normal) 01/06/21 06:34 Urine Ketones Negative (Negati ve) 01/06/21 06:34 Urine Blood Neg (Negative) 01/06/21 06:34 Urine Nitrate Negative (Negati ve) 01/06/21 06:34 Urine Bilirubin Neg (Negative) 01/06/21 06:34 Urine Urobilinogen Norm mg/dL (Negat torsten) 01/06/21 06:34 Ur Leukocyte Miesha ase Negative (Negati ve) 01/06/21 06:34 Urine RBC None /hpf (0-2) 01/06/21 06:34 Urine WBC None /hpf (0-5) 01/06/21 06:34 Ur Squamous Epith Cells None /hpf (0-5) 01/06/21 06:34 Amorphous Sediment Not Reportable 01/06/21 06:34 Urine Bacteria Trace /hpf (NONE) 01/06/21 06:34 Urine Mucus 2+ /hpf 01/06/21 06:34 Blood Type A Positive 01/06/21 09:50 Rho(D) Type Positive / 4+ 01/06/21 09:50 Impressions Chest X-Ray 01/06/21 05:11 IMPRESSION: No acute findings. Chest/Abdomen/Pelvis CT 01/06/21 06:49 IMPRESSION: No acute findings. Radiation Dose CTDIVOL = (mGy): DLP = 1567.23~1567.23 (mGy-cm) Pending at discharge Category Date Time Status ABO/Rh Type Routi ne Lab 01/06/21 09:50 A+, Rho (d) Type p ositive (4+), anti body negative Complete Crossmat ch Routine Lab 01/06/21 09:50 Platelets Leuko-R educed Routine Lab 01/06/21 09:[address] atelets transfused SARS Covid-2 Anti gen Routine Lab 01/06/21 05:11 Patient refused Diagnoses at Discharge Discharge Diagnosis (1) Abdominal pain: Status: Acute Qualifiers: Abdominal location: generalized Qualified Code(s): R10.84 - Generalized abdominal pain (2) Thrombocytopenia: Status: Acute (3) Anemia: Status: Acute Qualifiers: Anemia type: other cause Other causes of anemia: chronic disease, neoplastic Qualified Code(s): D63.0 - Anemia in neoplastic disease (4) Leukopenia: Status: Acute Qualifiers: Leukopenia type: neutropenia Neutropenia type: unspecified Qualified Code(s): D70.9 - Neutropenia, unspecified (5) AML (acute myeloblastic leukemia): Status: Chronic Permanent problem details: Has received some chemotherapy and had multiple bone marrow biopsies. Not wanting further treatment or hospitalization at this time. Other Information Additional DC diagnoses/information: Declined Covid testing Did not want to be hospitalized Discharge Plan Discharge Patient Disposition: Home Condition: Stable Prescriptions: New acetaminophen 325 mg Tablet 650 mg PO Q4H PRN (Reason: pain) Qty: 0 RF: 0 levofloxacin 750 mg tablet 750 mg PO DAILY 5 Days Qty: 5 RF: 0 cyclobenzaprine 10 mg tablet 10 mg PO BID PRN (Reason: muscle spasm) Qty: 30 RF: 0 Protonix 40 mg tablet,delayed release (DR/EC) 40 mg PO BID 14 Days Qty: 28 RF: 0 Continued multivitamin Tablet 1 tab PO DAILY RF: 0 Discontinued naproxen sodium [Aleve] 220 mg Tablet 440 mg PO PRN RF: 0 ibuprofen 200 mg Tablet 800 mg PO PRN RF: 0 Discharge Orders: Discharge Order (Routine); Ordered 01/06/21 Ordered By: Tiffanie Penny Referrals: Hernando Cuenca MD [Primary Care Provider] - 2 weeks Discharge Diet: Advance as tolerated Discharge Activity: Resume usual activity Patient Instructions: Opioid Safety Activity Restrictions/Additional Instructions: Avoid contact with others currently given increased rate of covid in our area. Your AML puts you at extremely high risk of severe COVID disease as does your current blood counts. You received a transfusion of platelets while you were here. Your white count was 1.7 (neutrophils 0.46). Your platelet count was 7(seven) prior to transfusion. Your hemoglobin was 8.9. You had a CT of your chest abdomen and pelvis that did not show any acute abnormalities. Chest x-ray showed no acute findings. You had no evidence of acute bleeding on examination nor any fever. ED doctor discussed with your oncologist at [place] who recommended the platelet transfusion. No indication for consideration of transfer particularly given that you do not want further hospitalization or chemotherapy. You did have some abnormal labs of concern such as elevation in D-dimer at 6.93, procalcitonin at 0.86, crp 96.7. COVID test was ordered but you declined. No reported symptoms beyond abdominal pain which has resolved. Electrolystes and liver ezymes were normal. Serial heart enzymes were negative for significant delta or change. Vital signs were stable on room air. Should you develop runny nose, sore throat, headache, malaise, cough or other concerning symptoms please be evaluated for possibility of Covid again. You would be a candidate for monoclonal antibody therapy if Covid was diagnosed soon enough from symptom onset. These medications can keep you from progressing towards Covid in some cases. But they must be given within the first 10 days of symptoms. If you develop fever of 100.4 or greater, given your current white blood count and neutrophil count, please initiate antibiotic course. I provided you some go od Rx prescription discount cards getting the cost of medication between $16 and $25 for you. I have asked you NOT to take Aleve or dkuv-kol-sayogop NSAID therapy such as ibuprofen. These medications may be partly responsible for your stomach discomfort, especially with low platelets. I wrote a 2 week prescription for a stomach medication in case you have stomach irritation that caused the abdominal pain and upset stomach. I have included a coupon to get this at a discount. Right now Tylenol is really the safest over the counter medication for pain from a platelet count standpoint. Unless otherwise told by your oncologist or other physician would avoid NSAID therapy such as Aleve to decrease the risk of serious bleeding. I did provide a prescription for some cyclobenzaprine to help with back pain as needed. A coupon for this also provided Return to emergency room for any bleeding that will not stop within a reasonable period of time or development of multiple bruises all over. Attestations Medical Necessity Statement*: Anticipated stay was less than 2 midnights Time Spent in Patient Care*: greater than 30 min Quality Metrics Clinical Quality Measures: During this hospital stay, did patient experience: None Coding Level of Care Code Acute Manga Artist for Chg Fwd Diagnoses Abdominal pain R10.84 Abdominal location: generalized Thrombocytopenia D69.6 Anemia D63.0 Anemia type: other cause Other causes of anemia: chronic disease, neoplastic Leukopenia D70.9 Leukopenia type: neutropenia Neutropenia type: unspecified AML (acute myeloblastic leukemia) C92.00
[2021-01-06] MEDS: acetaminophen 325 mg Tablet 650 MG PO (15:06)
== END 2021-01-06 17:33 | disposition home or self-care (01) ==
LOC: ER 10:08 → ER IP 15:03
PROVIDERS: Admitting Provider Hospitalist; Emergency Provider Emergency Medicine; PCP Internal Medicine Hematology & Oncology; Visit Provider Hospitalist
DX: R10.84 Generalized abdominal pain (principal); D69.6 Thrombocytopenia, unspecified; D63.0 Anemia in neoplastic disease; D70.9 Neutropenia, unspecified; C92.00 Acute myeloblastic leukemia, not having achieved remission; F17.210 Nicotine dependence, cigarettes, uncomplicated
CPT/HCPCS: 36415; 36430; 36600; 71045; 71275; 74177; 80053; 81001; 82550; 82803; 83605; 84145; 84484; 85025; 85378; 86140; 86900; 93005; 96361; 96374; 96375; 96376; 99285; G0378; J2270; J2405; J7030; P9055; Q9967

== ENCOUNTER 2021-01-13 10:10 | Emergency (ER) | payer MEDICAID, SELFPAY ==
[2021-01-13 10:53] VITALS: BP 102/72; PULSE 81; RESP 15; TEMP 37.5; O2SAT 99; BMI 30.5
[2021-01-13 12:00] VITALS: PULSE 48; RESP 15; O2SAT 99
[2021-01-13 12:16] LABS: Lymphocytes % 60.8 %; Mean Corpuscular HGB Conc 34.7 g/dL (30.0-36.0); Mean Corpuscular Volume 89.4 fL (80-94); Mean Platelet Volume 10.3 fL (7.4-10.4); Monocytes # 0.2 10^3/uL (0.2-0.9); Neutrophils % 24.6 %; Nucleated Red Blood Cells % 0 %; Red Blood Count 2.26 10^6/uL (4.1-5.3); Red Cell Distribution Width 11.7 % (12.1-15.1); White Blood Count 1.7 10^3/uL (4.0-10.0)
--- NOTE | 2021-01-13 12:17 | W.ED.GENADLT ---
HPI - General Adult General: Chief complaint: General Medical Stated complaint: LOSS OF APPETITE Time Seen by Provider: 01/13/21 10:31 History of Present Illness: HPI narrative: 50-year-old male with a known history of AML that does seem to be progressing. He is decided sometime ago not to treated. He was initially treated after his diagnosis in May 2020 with 4 to 5-month inpatient stay. He refuses to be hospitalized again and has not been on any medications since. He was here in the ER 1 week ago at that time he stated briefly and was transfused 2 units of platelets after which she was discharged face. Today patient returns complaining of poor appetite and a petechial-like rash that he has noticed in various areas throughout his body. He is not had any rectal bleeding or bleeding from mouth or gums. Onset (ago): day(s) Relieving factors: none Exacerbating factors: none Associated symptoms: Deny chest pain, confusion, cough, diaphoresis, decreased appetite, dyspnea, fevers/chills, headache(s), malaise, nausea, rash, palpitations, seizures, short of breath, syncope, vomiting or weakness Treatments prior to arrival: none Review of Systems Const: Denies: malaise or diaphoresis ENMT: Denies: throat pain, ear or mastoid pain, nasal discharge or nasal congestion Card: Denies: chest pain, palpitations or syncope Resp: Denies: dyspnea GI: Denies: nausea or vomiting : Denies: flank pain, dysuria, urinary frequency or urinary urgency Skin/Breast: Denies: rash Neuro: Denies: headache(s) or confusion PFSH ED PFSH: Medical History AML (acute myeloblastic leukemia) (~05/2020) Has received some chemotherapy and had multiple bone marrow biopsies. Not wanting further treatment or hospitalization at this time. History of anemia Orthostatic hypotension Surgical History History of bone marrow biopsy multiple Family History Denies family history of Cancer Social History Smoking and tobacco status: current every day smoker Alcohol intake: never Physical Exam Const: COMMON NORMALS: no acute distress GENERAL APPEARANCE: cooperative and comfortable ORIENTATION/CONSCIOUSNESS: Yes awake, Yes oriented to person, Yes oriented to place and Yes oriented to time HENMT: COMMON NORMALS: normocephalic, atraumatic and hearing grossly normal bilaterally HEAD & SCALP: normocephalic and atraumatic Neck/C-Spine: COMMON NORMALS: no JVD Resp: COMMON NORMALS: normal respiratory effort, No retractions, No use of accessory muscles and clear to auscultation bilaterally AUSCULTATION: clear to auscultation bilaterally Cardio: COMMON NORMALS: no JVD, regular rate, regular rhythm and No murmurs present (Cardio) RATE: regular rate RHYTHM: regular rhythm GI: COMMON NORMALS: Soft to palpation and No hepatosplenomegaly present AUSCULTATION: Yes normoactive bowel sounds PALPATION: Yes Soft to palpation, No Tenderness to palpation present (GI), No Guarding due to palpation present (GI) and Yes No hepatosplenomegaly present Extremity: COMMON NORMALS: normal to inspection, capillary refill normal, no clubbing, cyanosis or edema, no calf tenderness and no pedal edema Neuro: SENSORIUM/ORIENTATION: Yes oriented to person, Yes oriented to place and Yes oriented to time Skin: GENERAL SKIN EXAM: petechiae Course Vital Signs: Vital signs: Vital Signs Temperature 100.1 F H 01/13/21 14:02 Pulse Rate 123 H 01/13/21 14:02 Respiratory Rate 15 01/13/21 12:00 Blood Pressure 95/62 01/13/21 14:02 Pulse Oximetry 96 01/13/21 14:02 MDM - General Adult MDM Narrative: Medical decision making narrative: Reviewed lab findings with the patient. Also pointed out to him he is running a low-grade fever now. Normally we would recommend admission with blood cultures due to his suppressed ANC. He also needs transfusion of blood and platelets. Reviewed all this with him. Patient was quite aggressive about not wanting any of these things. He tells me he is currently taking Levaquin although it is not on his medication list. I offered to prescribe him Levaquin he declined he says he got some antibiotics at home if he wants to take them. Stress offered and strongly encouraged him to consider transferring to [place] to see his oncologist he adamantly and profanely refuses. Offered him at least twice. Offered also to transfuse him start him on antibiotics he refuses that to. Essentially he refuses all offered to treatment. Informed that anytime if he changes mind he can return we will reevaluate transfuse and/or transfer as is indicated. Did discuss with him that he is in a life-threatening position and refusal of appropriate treatments could result in his . He states that he understands and does not wish to stay or pursue any of these treatments at this time. Lab Data: Labs: Lab Results 01/13/21 01/13/21 01/13/21 Range/Units 12:06 12:06 12:06 WBC 1.7 L (4.0-10.0) 10^3/ uL RBC 2.26 L (4.1-5.3) 10^6/u L Hgb 7.0 L (11.7-16.6) g/dL Hct 20.2 L* (42.0-52.0) % MCV 89.4 (80-94) fL MCH 31.0 (28.0-34.0) pg MCHC 34.7 (30.0-36.0) g/dL RDW 11.7 L (12.1-15.1) % Plt Count 5 L* (130-400) 10^3/c mm MPV 10.3 (7.4-10.4) fL Neut % (Auto) 24.6 % Lymph % (Auto) 60.8 % [place] % (Auto) 14.0 % Eos % (Auto) 0.0 % Baso % (Auto) 0.0 % Neut # (Auto) 0.42 L* (1.8-7.7) 10^3/u L Lymph # (Auto) 1.0 (0.8-4.8) 10^3/u L [place] # (Auto) 0.2 (0.2-0.9) 10^3/u L Eos # (Auto) 0.0 (0.0-0.8) 10^3/u L Baso # (Auto) 0.0 (0.0-0.1) 10^3/u L Nucleated RBC % (a uto) 0 % Nucleated RBCs # 0.0 /100WBC PT 17.60 H (12.1-14.9) SECO NDS INR 1.40 H (0.8-1.2) APTT 39.0 H (23.9-36.7) SECO NDS Sodium 134 L (136-145) mmol/L Potassium 4.3 (3.5-5.1) mmol/L Chloride 94 L (98-107) mmol/L Carbon Dioxide 26 (22-29) mmol/L Anion Gap 18.3 (5-19) BUN 18 (6-20) mg/dL Creatinine 1.4 H (0.7-1.2) mg/dL GFR Calculation 54.1 L (90-130) mL/min Glucose 108 (65-115) mg/dL Calculated Osmolal ity 280 L (285-295) mOsm/k g Calcium 9.3 (8.5-10.5) mg/dL Total Bilirubin 0.6 (0.15-1.2) mg/dL AST 12 (0-40) U/L ALT 8 (0-41) U/L Alkaline Phosphata se 86 (40-130) IU/L Total Protein 6.8 (6.6-8.7) g/dL Albumin 3.7 (3.5-5.2) g/dL Globulin 3.1 (1.3-4.6) g/dL Urine Color (Yellow) Urine Appearance (CLEAR) Urine pH (5-7) Ur Specific Gravit y (1.005-1.030) Urine Protein (Negative) Urine Glucose (UA) (Normal) Urine Ketones (Negative) Urine Blood (Negative) Urine Nitrate (Negative) Urine Bilirubin (Negative) Urine Urobilinogen (Negative) mg/dL Ur Leukocyte Miesha ase (Negative) Urine RBC (0-2) /hpf Urine WBC (0-5) /hpf Ur Squamous Epith Cells (0-5) /hpf Amorphous Sediment Urine Bacteria (NONE) /hpf Hyaline Casts /lpf Coarse Granular Ca sts /lpf Urine Mucus /hpf 01/13/21 Range/Units 12:44 WBC (4.0-10.0) 10^3/ uL RBC (4.1-5.3) 10^6/u L Hgb (11.7-16.6) g/dL Hct (42.0-52.0) % MCV (80-94) fL MCH (28.0-34.0) pg MCHC (30.0-36.0) g/dL RDW (12.1-15.1) % Plt Count (130-400) 10^3/c mm MPV (7.4-10.4) fL Neut % (Auto) % Lymph % (Auto) % [place] % (Auto) % Eos % (Auto) % Baso % (Auto) % Neut # (Auto) (1.8-7.7) 10^3/u L Lymph # (Auto) (0.8-4.8) 10^3/u L [place] # (Auto) (0.2-0.9) 10^3/u L Eos # (Auto) (0.0-0.8) 10^3/u L Baso # (Auto) (0.0-0.1) 10^3/u L Nucleated RBC % (a uto) % Nucleated RBCs # /100WBC PT (12.1-14.9) SECO NDS INR (0.8-1.2) APTT (23.9-36.7) SECO NDS Sodium (136-145) mmol/L Potassium (3.5-5.1) mmol/L Chloride (98-107) mmol/L Carbon Dioxide (22-29) mmol/L Anion Gap (5-19) BUN (6-20) mg/dL Creatinine (0.7-1.2) mg/dL GFR Calculation (90-130) mL/min Glucose (65-115) mg/dL Calculated Osmolal ity (285-295) mOsm/k g Calcium (8.5-10.5) mg/dL Total Bilirubin (0.15-1.2) mg/dL AST (0-40) U/L ALT (0-41) U/L Alkaline Phosphata se (40-130) IU/L Total Protein (6.6-8.7) g/dL Albumin (3.5-5.2) g/dL Globulin (1.3-4.6) g/dL Urine Color Dark yellow (Yellow) Urine Appearance Clear (CLEAR) Urine pH 5 (5-7) Ur Specific Gravit y 1.020 (1.005-1.030) Urine Protein 1+ H (Negative) Urine Glucose (UA) Norm (Normal) Urine Ketones Negative (Negative) Urine Blood Neg (Negative) Urine Nitrate Negative (Negative) Urine Bilirubin 2+ H (Negative) Urine Urobilinogen 4 H (Negative) mg/dL Ur Leukocyte Miesha ase Trace H (Negative) Urine RBC None (0-2) /hpf Urine WBC 0-4 H (0-5) /hpf Ur Squamous Epith Cells Rare (0-5) /hpf Amorphous Sediment Not Reportable Urine Bacteria 1+ H (NONE) /hpf Hyaline Casts 10-15 H /lpf Coarse Granular Ca sts 0-4 H /lpf Urine Mucus 3+ /hpf Discharge Plan Discharge Patient Disposition: Home Clinical Impression: AML (acute myeloblastic leukemia), Anemia, Thrombocytopenia, Leukopenia Condition: Stable Prescriptions: No Action multivitamin Tablet 1 tab PO DAILY RF: 0 acetaminophen 325 mg Tablet 650 mg PO Q4H PRN (Reason: pain) Qty: 0 RF: 0 cyclobenzaprine 10 mg tablet 10 mg PO BID PRN (Reason: muscle spasm) Qty: 30 RF: 0 Protonix 40 mg tablet,delayed release (DR/EC) 40 mg PO BID 14 Days Qty: 28 RF: 0 Discharge Orders: Discharge ED (Routine); Ordered 01/13/21 Ordered By: Jesse Orlando Referrals: Hernando Cuenca MD [Primary Care Provider] - Patient Instructions: Opioid Safety Activity Restrictions/Additional Instructions: If you should change your mind about pursuing treatment or the transfusions you can return to the emergency room we will gladly reevaluate and transfuse as necessary or refer to your oncologist in [place] if you are agreeable to do that. If not I highly recommend that you follow-up with your oncologist as soon as you possibly can. Coding Level of Care Code ED Two Needle Machine Operator for Chg Fwd Exam Comprehensive
[2021-01-13 12:31] LABS: Alanine Aminotransferase 8 U/L (0-41); Albumin Level 3.7 g/dL (3.5-5.2); Alkaline Phosphatase 86 IU/L (40-130); Aspartate Amino Transferase 12 U/L (0-40); Blood Urea Nitrogen 18 mg/dL (6-20); Calcium 9.3 mg/dL (8.5-10.5); Carbon Dioxide 26 mmol/L (22-29); Chloride 94 mmol/L (98-107); Globulin 3.1 g/dL (1.3-4.6); Glomerular Filtration Rate 54.1 mL/min (90-130); Glucose 108 mg/dL (65-115); Osmolality Calculated 280 mOsm/kg (285-295); Sodium 134 mmol/L (136-145); Total Bilirubin 0.6 mg/dL (0.15-1.2); Total Protein 6.8 g/dL (6.6-8.7)
[2021-01-13 12:49] LABS: Potassium 4.3 mmol/L (3.5-5.1)
[2021-01-13 12:50] LABS: Anion Gap 18.3 (5-19)
[2021-01-13 13:29] LABS: Blood Urine Neg (Negative); Glucose Urine UA Norm (Normal); Ketones Urine Negative (Negative); Nitrate Urine Negative (Negative); Protein Urine 1+ (Negative); Urine Appearance Clear (CLEAR); Urine Color Dark Yellow (Yellow); pH Urine 5 (5-7)
[2021-01-13 13:30] LABS: Add Urine Culture? No; Add Urine Microscopic? YES; Bacteria Urine 1+ /hpf; Bilirubin Urine 2+ (Negative); Coarse Granular Casts Urine 0-4 /lpf; Leukocyte Esterase Urine Trace (Negative); Mucus Urine 3+ /hpf; Squamous Epithelial Cell Urine RARE /hpf (0-5); Urobilinogen Urine 4 mg/dL (Negative); WBC Urine 0-4 /hpf (0-5)
[2021-01-13 13:32] LABS: Slide Review Slide Review Perform
[2021-01-13 13:35] LABS: Hematocrit 20.2 % (42.0-52.0); Neutrophils # 0.42 10^3/uL (1.8-7.7); Platelet Count 5 10^3/cmm (130-400)
[2021-01-13 14:02] VITALS: BP 95/62; PULSE 123; TEMP 37.8; O2SAT 96
== END 2021-01-13 14:25 | disposition home or self-care (01) ==
PROVIDERS: Emergency Provider Family Medicine; PCP Internal Medicine Hematology & Oncology
DX: C92.00 Acute myeloblastic leukemia, not having achieved remission (principal); D64.9 Anemia, unspecified; D69.6 Thrombocytopenia, unspecified; D72.819 Decreased white blood cell count, unspecified; F17.210 Nicotine dependence, cigarettes, uncomplicated
CPT/HCPCS: 36415; 80053; 81001; 85025; 85610; 85730; 99282

== ENCOUNTER 2021-01-15 09:45 | Emergency (ER) | payer MEDICAID, SELFPAY ==
[2021-01-15 09:46] VITALS: BP 103/61; PULSE 146; RESP 18; TEMP 37.6; O2SAT 96; BMI 30.7
[2021-01-15 09:57] VITALS: BP 103/61; PULSE 141; RESP 14; O2SAT 99
--- NOTE | 2021-01-15 10:00 | ED_ITS ---
Documented by User: LEANDER Partida 01/15/21 13:05 HPI - Weakness General: Chief complaint: Weakness Stated complaint: WEAKNESS Time Seen by Provider: 01/15/21 09:49 Source: patient Mode of arrival: EMS Limitations: no limitations History of Present Illness: HPI Narrative: Patient is a 50-year-old male who returns to the emergency department stating I was told I could come back for blood transfusion and platelets . Patient was seen at our facility 2 days ago and essentially refused all treatment at that time. Patient has a history of AML that he has refused treatment for. When he was first diagnosed he did have a 4-month hospitalization at [facility] for chemotherapy however patient did not like the side effects and tells me he met 3 other individuals there who were all receiving the same treatment and states all 3 are now thus making him very adamant about not receiving any further therapies. He complains of generalized weakness, shortness of breath, and a petechial rash. Patient is an every day smoker and states I am sure that doesn't help things . Complaint: generalized weakness Onset (ago): day(s) Duration: constant Migration: none Severity: severe Relieving factors: none Exacerbating factors: none Context: other (untreated AML) Associated symptoms: Reports fever(s) (low grade); Denies chest pain, chills, confusion, dysuria, headache(s), nausea or vomiting Review of Systems Const: Reports: fever(s) (low grade) and fatigue; Denies: chills Eyes: Denies: change in vision or blurry vision ENMT: Denies: throat pain, odynophagia, nasal discharge or nasal congestion Card: Reports: lightheadedness, pre-syncope and dyspnea on exertion; Denies: chest pain, palpitations, irregular heart rhythm, edema or swelling of feet/ankles Resp: Reports: dyspnea and non-productive cough GI: Denies: abdominal pain, nausea, vomiting or diarrhea : Denies: flank pain or dysuria Musc: Denies: neck pain, back pain, extremity pain or joint pain Skin/Breast: Reports: rash Neuro: Reports: dizziness; Denies: headache(s), numbness in extremities, sensory changes, difficulty walking, confusion, Slurred speech present, difficulty communicating thoughts or seizure-like activity FOR[facility]LY [facility] ED PFSH: Medical History AML (acute myeloblastic leukemia) (~05/2020) Has received some chemotherapy and had multiple bone marrow biopsies. Not wanting further treatment or hospitalization at this time. History of anemia Orthostatic hypotension Surgical History History of bone marrow biopsy multiple Family History Denies family history of Cancer Social History Smoking and tobacco status: current every day smoker Alcohol intake: never Physical Exam Const: COMMON NORMALS: no acute distress, patient oriented x3, no limitations and alert GENERAL APPEARANCE: cooperative ORIENTATION/CONSCIOUSNESS: Yes awake, Yes oriented to person, Yes oriented to place and Yes oriented to time HENMT: COMMON NORMALS: normocephalic and atraumatic HEAD & SCALP: normocephalic and atraumatic Resp: COMMON NORMALS: normal respiratory effort AUSCULTATION: wheezes throughout Cardio: COMMON NORMALS: regular rhythm RATE: tachycardic RHYTHM: regular rhythm GI: COMMON NORMALS: Normal to inspection, nondistended, normoactive bowel sounds present, Soft to palpation, non-tender, No hepatosplenomegaly present and no masses PALPATION: Yes Soft to palpation and Yes No hepatosplenomegaly present Extremity: COMMON NORMALS: normal to inspection Neuro: ANGY COMA SCALE: document GCS findings [place] coma scale eye opening: Spontaneous [place] coma scale verbal response: Orientated [place] coma scale motor response: Obey commands [place] coma scale total score: 15 COMMON NORMALS: patient oriented x3 SENSORIUM/ORIENTATION: Yes alert, Yes oriented to person, Yes oriented to place and Yes oriented to time Skin: NARRATIVE SKIN EXAM: Petechial rash to arms/axilla Course Vital Signs: Vital signs: Vital Signs Temperature 100.3 F H 01/15/21 10:21 Pulse Rate 84 01/15/21 11:56 Respiratory Rate 16 01/15/21 11:56 Blood Pressure 118/75 01/15/21 10:21 Pulse Oximetry 96 01/15/21 11:56 MDM - Weakness MDM Narrative: Medical decision making narrative: Told patient he needs admitted for emergent blood transfusion and platelet transfusion as well as work-up for neutropenic fever. Patient most likely would require transfer to [facility] with his oncology team. Patient tells me he does not have any clothes and wants to pack a bag prior to transfer. In addition he states he is claustrophobic and does not want to ride in an ambulance for the transfer time it would take to get to [facility]. I have urged patient the importance of his treatment. He seems overly concerned that the chemotherapy is going to kill him . I have discussed with him if he is septic with a neutrophil count of 0.4 there is a good chance he could of infection. Anemia and thrombocytopenia slightly worse today than it was 2 days ago. He did agree to blood transfusion and platelet transfusion but states he wants to be discharged and states his will drive him to [facility] tomorrow and he will check into their ED if necessary to receive treatment. They have contacted their oncologist and waiting to hear back from him. He was given IV antibiotics prior to discharge. He is being discharged straight to the GI lab for his blood transfusion and platelet transfusion. We will send him home on oral antibiotics with strict instructions to get to [facility] as soon as possible. Lab Data: Labs: Lab Results 01/15/21 01/15/21 01/15/21 Range/Units 10:00 10:00 10:21 WBC 1.6 L (4.0-10.0) 10^3/ uL RBC 2.17 L (4.1-5.3) 10^6/u L Hgb 6.9 L (11.7-16.6) g/dL Hct 19.4 L* (42.0-52.0) % MCV 89.4 (80-94) fL MCH 31.8 (28.0-34.0) pg MCHC 35.6 (30.0-36.0) g/dL RDW 11.7 L (12.1-15.1) % Plt Count 2 L* (130-400) 10^3/c mm MPV Not Reportable Neut % (Auto) 24.7 % Lymph % (Auto) 61.1 % [place] % (Auto) 13.6 % Eos % (Auto) 0.0 % Baso % (Auto) 0.0 % Neut # (Auto) 0.40 L* (1.8-7.7) 10^3/u L Lymph # (Auto) 1.0 (0.8-4.8) 10^3/u L [place] # (Auto) 0.2 (0.2-0.9) 10^3/u L Eos # (Auto) 0.0 (0.0-0.8) 10^3/u L Baso # (Auto) 0.0 (0.0-0.1) 10^3/u L Nucleated RBC % (a uto) 0 % Nucleated RBCs # 0.0 /100WBC Sodium 135 L (136-145) mmol/L Potassium 4.4 (3.5-5.1) mmol/L Chloride 94 L (98-107) mmol/L Carbon Dioxide 27 (22-29) mmol/L Anion Gap 18.4 (5-19) BUN 23 H (6-20) mg/dL Creatinine 1.5 H (0.7-1.2) mg/dL GFR Calculation 49.9 L (90-130) mL/min Glucose 108 (65-115) mg/dL Calculated Osmolal ity 284 L (285-295) mOsm/k g Lactic Acid (0.5-2.2) mmol/L Calcium 9.4 (8.5-10.5) mg/dL Total Bilirubin 0.6 (0.15-1.2) mg/dL AST 13 (0-40) U/L ALT 7 (0-41) U/L Alkaline Phosphata se 78 (40-130) IU/L Total Protein 7.1 (6.6-8.7) g/dL Albumin 3.7 (3.5-5.2) g/dL Globulin 3.4 (1.3-4.6) g/dL SARS-CoV-2 Ag (Rap id) Negative (Negative) 01/15/21 Range/Units 10:40 WBC (4.0-10.0) 10^3/ uL RBC (4.1-5.3) 10^6/u L Hgb (11.7-16.6) g/dL Hct (42.0-52.0) % MCV (80-94) fL MCH (28.0-34.0) pg MCHC (30.0-36.0) g/dL RDW (12.1-15.1) % Plt Count (130-400) 10^3/c mm MPV Neut % (Auto) % Lymph % (Auto) % [place] % (Auto) % Eos % (Auto) % Baso % (Auto) % Neut # (Auto) (1.8-7.7) 10^3/u L Lymph # (Auto) (0.8-4.8) 10^3/u L [place] # (Auto) (0.2-0.9) 10^3/u L Eos # (Auto) (0.0-0.8) 10^3/u L Baso # (Auto) (0.0-0.1) 10^3/u L Nucleated RBC % (a uto) % Nucleated RBCs # /100WBC Sodium (136-145) mmol/L Potassium (3.5-5.1) mmol/L Chloride (98-107) mmol/L Carbon Dioxide (22-29) mmol/L Anion Gap (5-19) BUN (6-20) mg/dL Creatinine (0.7-1.2) mg/dL GFR Calculation (90-130) mL/min Glucose (65-115) mg/dL Calculated Osmolal ity (285-295) mOsm/k g Lactic Acid 1.2 (0.5-2.2) mmol/L Calcium (8.5-10.5) mg/dL Total Bilirubin (0.15-1.2) mg/dL AST (0-40) U/L ALT (0-41) U/L Alkaline Phosphata se (40-130) IU/L Total Protein (6.6-8.7) g/dL Albumin (3.5-5.2) g/dL Globulin (1.3-4.6) g/dL SARS-CoV-2 Ag (Rap id) (Negative) Imaging Data^: CXR: Radiologist's impression: [address] [id number] ReportSigned Patient: Sukhdeep Hyde #: [id number]: [id number]#:[id number]/Sex: 50 / MADM Date: 01/15/21Loc: ERRoom/Bed:Attending Dr: Ordering Provider/Ordering MD: Melina Massey Date of Service: 01/15/21 Procedure(s): XR chest 1V portable [id number] Accession Number(s): [id number] Report Number: [id number] PROCEDURE INFORMATION: Exam: XR Chest Exam date and time: 01/15/2021 9:59 AM Age: 50 years old Clinical indication: Condition or disease; Other: Sepsis TECHNIQUE: Imaging protocol: XR of the chest. Views: Frontal portable upright view of the chest. COMPARISON: CR (CHEST, ) 01/06/2021 5:25 AM FINDINGS: Lungs: The lungs are clear bilaterally. The pulmonary vasculature is normal. Pleural spaces: No pleural effusion. No pneumothorax. Heart/Mediastinum: The heart is normal in size and contour. Mediastinum: Stable. Bones/joints: Stable. XR/XR chest 1V portable [id number] IMPRESSION: No acute cardiopulmonary abnormality identified. Dictated By:Perry Pitts MDSigned By:Perry Pitts MDSigned Date/Time:01/15/21 1106DD/ 1105 Discharge Plan Discharge Patient Disposition: Home Clinical Impression: Thrombocytopenia Anemia Qualifiers: Anemia type: unspecified type Qualified Code(s): D64.9 - Anemia, unspecified AML (acute myeloblastic leukemia) Qualifiers: Leukemia Active/Remission status: without remission Qualified Code(s): C92.00 - Acute myeloblastic leukemia, not having achieved remission Leukopenia Qualifiers: Leukopenia type: unspecified Qualified Code(s): D72.819 - Decreased white blood cell count, unspecified Condition: Stable Prescriptions: No Action multivitamin Tablet 1 tab PO DAILY RF: 0 acetaminophen 325 mg Tablet 650 mg PO Q4H PRN (Reason: pain) Qty: 0 RF: 0 cyclobenzaprine 10 mg tablet 10 mg PO BID PRN (Reason: muscle spasm) Qty: 30 RF: 0 pantoprazole [Protonix] 40 mg tablet,delayed release (DR/EC) 40 mg PO BID 14 Days Qty: 28 RF: 0 Discharge Orders: Discharge ED (Routine); Ordered 01/15/21 Ordered By: Melina Massey Activity Restrictions/Additional Instructions: You are being discharged with instructions to go immediately to the GI Lab for blood transfusion and platelet transfusion. You have declined admission into the hospital or transfer for your neutropenic fever/possible sepsis, extremely low platelet count, severe anemia, and several other lab abnormalities. You have indicated your will drive you to [place] where your oncologist is jaison wall-I think at this point this is the best plan as you are refusing further care from our end today. Coding Level of Care Code ED Gang Bore Operator for Chg Fwd Exam Detailed Documented by User: Jesse Orlando DO 01/18/21 09:55 HPI - Weakness General: Chief complaint: Weakness Stated complaint: WEAKNESS Time Seen by Provider: 01/15/21 09:49 PFSH ED PFSH: Medical History AML (acute myeloblastic leukemia) (~05/2020) Has received some chemotherapy and had multiple bone marrow biopsies. Not wanting further treatment or hospitalization at this time. History of anemia Orthostatic hypotension Surgical History History of bone marrow biopsy multiple Family History Denies family history of Cancer Social History Smoking and tobacco status: current every day smoker Alcohol intake: never Course Vital Signs: Vital signs: Vital Signs Temperature 100.3 F H 01/15/21 10:21 Pulse Rate 84 01/15/21 11:56 Respiratory Rate 16 01/15/21 11:56 Blood Pressure 118/75 01/15/21 10:21 Pulse Oximetry 96 01/15/21 11:56 MDM - Weakness MDM Narrative: Medical decision making narrative: Discussed with LEANDER Partida. Agree with assessment and plan I seen this patient previously he desperately needs to see oncology diseases had a critical point he should be admitted and started on IV antibiotics and transferred because of his immunosuppression due to his disease and fever. He refused to do so when I seen him last time and is refusing to do so today. We accommodated him as best we could. Warned him of the risks of not following our recommendations including that he could rapidly deteriorate and there was a very real risk of sepsis and he expresses understanding this refuses to be transferred or admitted here. He states he will drive himself to see the oncology group where he was seen before in [place]. Despite our best efforts he would not follow medical advice. Lab Data: Labs: Lab Results 01/15/21 01/15/21 01/15/21 Range/Units 10:00 10:00 10:21 WBC 1.6 L (4.0-10.0) 10^3/ uL RBC 2.17 L (4.1-5.3) 10^6/u L Hgb 6.9 L (11.7-16.6) g/dL Hct 19.4 L* (42.0-52.0) % MCV 89.4 (80-94) fL MCH 31.8 (28.0-34.0) pg MCHC 35.6 (30.0-36.0) g/dL RDW 11.7 L (12.1-15.1) % Plt Count 2 L* (130-400) 10^3/c mm MPV Not Reportable Neut % (Auto) 24.7 % Lymph % (Auto) 61.1 % [place] % (Auto) 13.6 % Eos % (Auto) 0.0 % Baso % (Auto) 0.0 % Neut # (Auto) 0.40 L* (1.8-7.7) 10^3/u L Lymph # (Auto) 1.0 (0.8-4.8) 10^3/u L [place] # (Auto) 0.2 (0.2-0.9) 10^3/u L Eos # (Auto) 0.0 (0.0-0.8) 10^3/u L Baso # (Auto) 0.0 (0.0-0.1) 10^3/u L Nucleated RBC % (a uto) 0 % Nucleated RBCs # 0.0 /100WBC Sodium 135 L (136-145) mmol/L Potassium 4.4 (3.5-5.1) mmol/L Chloride 94 L (98-107) mmol/L Carbon Dioxide 27 (22-29) mmol/L Anion Gap 18.4 (5-19) BUN 23 H (6-20) mg/dL Creatinine 1.5 H (0.7-1.2) mg/dL GFR Calculation 49.9 L (90-130) mL/min Glucose 108 (65-115) mg/dL Calculated Osmolal ity 284 L (285-295) mOsm/k g Lactic Acid (0.5-2.2) mmol/L Calcium 9.4 (8.5-10.5) mg/dL Total Bilirubin 0.6 (0.15-1.2) mg/dL AST 13 (0-40) U/L ALT 7 (0-41) U/L Alkaline Phosphata se 78 (40-130) IU/L Total Protein 7.1 (6.6-8.7) g/dL Albumin 3.7 (3.5-5.2) g/dL Globulin 3.4 (1.3-4.6) g/dL SARS-CoV-2 Ag (Rap id) Negative (Negative) 01/15/21 Range/Units 10:40 WBC (4.0-10.0) 10^3/ uL RBC (4.1-5.3) 10^6/u L Hgb (11.7-16.6) g/dL Hct (42.0-52.0) % MCV (80-94) fL MCH (28.0-34.0) pg MCHC (30.0-36.0) g/dL RDW (12.1-15.1) % Plt Count (130-400) 10^3/c mm MPV Neut % (Auto) % Lymph % (Auto) % [place] % (Auto) % Eos % (Auto) % Baso % (Auto) % Neut # (Auto) (1.8-7.7) 10^3/u L Lymph # (Auto) (0.8-4.8) 10^3/u L [place] # (Auto) (0.2-0.9) 10^3/u L Eos # (Auto) (0.0-0.8) 10^3/u L Baso # (Auto) (0.0-0.1) 10^3/u L Nucleated RBC % (a uto) % Nucleated RBCs # /100WBC Sodium (136-145) mmol/L Potassium (3.5-5.1) mmol/L Chloride (98-107) mmol/L Carbon Dioxide (22-29) mmol/L Anion Gap (5-19) BUN (6-20) mg/dL Creatinine (0.7-1.2) mg/dL GFR Calculation (90-130) mL/min Glucose (65-115) mg/dL Calculated Osmolal ity (285-295) mOsm/k g Lactic Acid 1.2 (0.5-2.2) mmol/L Calcium (8.5-10.5) mg/dL Total Bilirubin (0.15-1.2) mg/dL AST (0-40) U/L ALT (0-41) U/L Alkaline Phosphata se (40-130) IU/L Total Protein (6.6-8.7) g/dL Albumin (3.5-5.2) g/dL Globulin (1.3-4.6) g/dL SARS-CoV-2 Ag (Rap id) (Negative) Discharge Plan Discharge Patient Disposition: Home Clinical Impression: Thrombocytopenia Anemia Qualifiers: Anemia type: unspecified type Qualified Code(s): D64.9 - Anemia, unspecified AML (acute myeloblastic leukemia) Qualifiers: Leukemia Active/Remission status: without remission Qualified Code(s): C92.00 - Acute myeloblastic leukemia, not having achieved remission Leukopenia Qualifiers: Leukopenia type: unspecified Qualified Code(s): D72.819 - Decreased white blood cell count, unspecified Condition: Stable Prescriptions: No Action multivitamin Tablet 1 tab PO DAILY RF: 0 acetaminophen 325 mg Tablet 650 mg PO Q4H PRN (Reason: pain) Qty: 0 RF: 0 cyclobenzaprine 10 mg tablet 10 mg PO BID PRN (Reason: muscle spasm) Qty: 30 RF: 0 pantoprazole [Protonix] 40 mg tablet,delayed release (DR/EC) 40 mg PO BID 14 Days Qty: 28 RF: 0 Discharge Orders: Discharge ED (Routine); Ordered 01/15/21 Ordered By: Melina Massey Activity Restrictions/Additional Instructions: You are being discharged with instructions to go immediately to the GI Lab for blood transfusion and platelet transfusion. You have declined admission into the hospital or transfer for your neutropenic fever/possible sepsis, extremely low platelet count, severe anemia, and several other lab abnormalities. You have indicated your will drive you to [place] where your oncologist is tomorrow-I think at this point this is the best plan as you are refusing further care from our end today. Coding Level of Care Code ED Gang Bore Operator for Chg Fwd Exam Detailed
[2021-01-15 10:11] LABS: Hemoglobin 6.9 g/dL (11.7-16.6); Lymphocytes % 61.1 %; Mean Corpuscular HGB Conc 35.6 g/dL (30.0-36.0); Mean Corpuscular Hemoglobin 31.8 pg (28.0-34.0); Mean Corpuscular Volume 89.4 fL (80-94); Monocytes # 0.2 10^3/uL (0.2-0.9); Monocytes % 13.6 %; Neutrophils % 24.7 %; Nucleated Red Blood Cells % 0 %; Red Blood Count 2.17 10^6/uL (4.1-5.3); Red Cell Distribution Width 11.7 % (12.1-15.1); White Blood Count 1.6 10^3/uL (4.0-10.0)
[2021-01-15 10:20] LABS: Hematocrit 19.4 % (42.0-52.0); Platelet Count 2 10^3/cmm (130-400)
--- NOTE | 2021-01-15 10:20 | PC.PHAR ---
pts philippe verified pts medications-states she takes care of his meds-pts states the pt has one dose left of levaquin-ext med history shows filled on 01/07/21 5d/s-pts states the pt didnt start till 01/09/21-pts states the pt only takes the medications entered
[2021-01-15 10:21] VITALS: BP 118/75; PULSE 137; RESP 20; TEMP 37.9; O2SAT 96
--- NOTE | 2021-01-15 10:31 | PC.NURSE ---
Received critical labs. Provider notified.
[2021-01-15 10:34] LABS: Alanine Aminotransferase 7 U/L (0-41); Albumin Level 3.7 g/dL (3.5-5.2); Alkaline Phosphatase 78 IU/L (40-130); Anion Gap 18.4 (5-19); Aspartate Amino Transferase 13 U/L (0-40); Blood Urea Nitrogen 23 mg/dL (6-20); Calcium 9.4 mg/dL (8.5-10.5); Carbon Dioxide 27 mmol/L (22-29); Chloride 94 mmol/L (98-107); Globulin 3.4 g/dL (1.3-4.6); Glomerular Filtration Rate 49.9 mL/min (90-130); Glucose 108 mg/dL (65-115); Osmolality Calculated 284 mOsm/kg (285-295); Potassium 4.4 mmol/L (3.5-5.1); Sodium 135 mmol/L (136-145); Total Bilirubin 0.6 mg/dL (0.15-1.2); Total Protein 7.1 g/dL (6.6-8.7)
[2021-01-15 10:44] VITALS: RESP 16; O2SAT 96
[2021-01-15] MEDS: ondansetron 2 mg/ML SDV 2 mL 4 MG IVP (10:44)
[2021-01-15] MEDS: morphine 4 mg/mL SDV 1 mL IVP (10:44)
[2021-01-15 10:53] LABS: SARS Covid-2 Antigen Negative (Negative)
[2021-01-15 11:23] LABS: Lactic Sepsis W/Reflex 1.2 mmol/L (0.5-2.2)
[2021-01-15] MEDS: cefepime 1,000 MG in sodium chloride 0.9% (plus) 50 ML 100 MG IV (11:38)
[2021-01-15 11:56] VITALS: PULSE 84; RESP 16; O2SAT 96
== END 2021-01-15 12:01 | disposition home or self-care (01) ==
PROVIDERS: Emergency Provider Physician Assistant
DX: D64.9 Anemia, unspecified (principal); C92.00 Acute myeloblastic leukemia, not having achieved remission; D72.819 Decreased white blood cell count, unspecified; D69.6 Thrombocytopenia, unspecified; F17.210 Nicotine dependence, cigarettes, uncomplicated; Z20.822 Contact with and (suspected) exposure to COVID-19
CPT/HCPCS: 36415; 71045; 80053; 83605; 85025; 87040; 87426; 96365; 96375; 99284; J0692; J2270; J2405

== ENCOUNTER 2021-01-15 11:43 | Outpatient (CLI) | payer MEDICAID, SELFPAY ==
[2021-01-15] VITALS (12 sets, daily range): BP systolic 86–110; BP diastolic 53–71; PULSE 92–135; RESP 14–18; TEMP 36.2–36.8; O2SAT 92–99
[2021-01-15] MEDS: acetaminophen 325 mg Tablet 650 MG PO (12:42)
[2021-01-15] MEDS: diphenhydrAMINE 50 mg Capsule PO (12:42)
[2021-01-15] MEDS: sodium chloride 0.9% (100 ml) 100 ML 10 ML ×2 (12:44→14:33)
--- NOTE | 2021-01-15 12:57 | PC.NURSE ---
First unit PRBC's infusing without difficulty. Pt to receive 2 units PRBC's and 2 units platelets. Pt pre-medicated with Tylenol and Benadryl prior to transfusion as ordered. Pt at bedside. No questions voiced. Will continue to monitor.
--- NOTE | 2021-01-15 15:40 | PC.NURSE ---
Second unit PRBC's infused. No reaction noted. Pt to receive 2 units platelets. VSS.
== END 2021-01-15 11:44 | disposition home or self-care (01) ==
LOC: OPS 11:47 → GILAB 11:48
PROVIDERS: Visit Provider Physician Assistant
DX: D64.9 Anemia, unspecified (principal); C92.00 Acute myeloblastic leukemia, not having achieved remission; D72.819 Decreased white blood cell count, unspecified; F17.210 Nicotine dependence, cigarettes, uncomplicated
CPT/HCPCS: 36430; 86850; 86900; 86920; P9040; P9053; Q0163